=== PATIENT | male | born 1975 | race Caucasian/White ===

== ENCOUNTER 2016-09-12 20:15 | Emergency (ER) | payer SELFPAY ==
--- NOTE | 2016-09-12 21:15 | EDM.PDOC ---
ED HPI Trauma - General Chief Complaint: Upper Extremity Injury/Pain Stated Complaint: SHOULDER PAIN Time Seen by Provider: 09/12/16 20:23 Source: Reports: Patient History Limitations: Reports: No limitations - History of Present Illness INITIAL COMMENTS - FREE TEXT/NARRATIVE: HISTORY AND PHYSICAL: History of present illness: [40-year-old male] Review of systems: As per history of present illness and below otherwise all systems reviewed and negative. Past medical history: As per history of present illness and as reviewed below otherwise noncontributory. Surgical history: As per history of present illness and as reviewed below otherwise noncontributory. Social history: No reported history of drug or alcohol abuse. Family history: As per history of present illness and as reviewed below otherwise noncontributory. Physical exam: HEENT: Normocephalic, atraumatic, pupils normal and symmetrical, supple neck, no meningismus, normal color Lungs: Normal and symmetrical chest wall excursion bilateral with no tachypnea or increased work of breathing, grossly normal chest exam Heart: No tachycardia in triage Abdomen: Normal-appearing, nondistended, no visible mass or asymmetry Pelvis: Normal-appearing Genitourinary: Deferred Rectal exam: Deferred Extremities: Atraumatic, mild soft tissue tenderness right anterior shoulder in the distribution of biceps tendon. No skin changes no soft tissue swelling. No bony tenderness. Neurovascularly intact the right upper extremity and otherwise normal use and range of motion, no visible evidence of gross neurovascular compromise Neuro: Awake, alert, oriented. Normal and appropriate mental status. Cranial nerves grossly unremarkable. Motor function normal. Nonfocal neurologic exam. Diagnostics: [X-ray right shoulder interpreted by me unremarkable no acute bony abnormality. Report reviewed] Therapeutics: [] Impression: [] Plan: [Signs and symptoms consistent with suspected tendinitis with minimal reproducible pain in the biceps tendon distribution. Patient is well-appearing x -rays unremarkable no evidence of lytic lesion. No further workup or treatment indicated. Patient aware to range of motion his shoulder on a regular basis so as not to lose this ability. He will followup with PCP and orthopedics was given information for Dr. Chandni Arguello our orthopedic DrChristiana in is aware to apply ice as needed and return for new severe or worsening symptoms] Definitive disposition and diagnosis as appropriate pending reevaluation and review of above. Allergies/ADRs: Allergies No Known Allergies Allergy (Verified 09/12/16 20:30) Home Medications: Ambulatory Orders . [No Known Home Meds] 09/12/16 [Confirmed 09/12/16] Past Medical History Cardiovascular History: Reports: Hypertension Other Genitourinary History: on hemodialysis; fistula on left arm - Infectious Disease History Infectious Disease History: Reports: Chicken pox Social & Family History - Family History Family Medical History: Noncontributory - Tobacco Use Smoking Status *Q: Current Every Day Smoker Years of Tobacco use: 17 Packs/Tins Daily: 1 - Caffeine Use Caffeine Use: Reports: Coffee Caffeine Use Comment: 1cup/day - Recreational Drug Use Recreational Drug Use: No Review of Systems - Review of Systems Review Of Systems: See Below (History of present illness) Trauma Exam - Physical Exam Exam: See Below (History of present illness) Course - Vital Signs Last Recorded V/S: Last Vital Signs Temp 36.7 C 09/12/16 20:24 Pulse 89 09/12/16 21:48 Resp 16 09/12/16 21:48 BP 184/105 H 09/12/16 21:48 Pulse Ox 96 09/12/16 21:48 - Orders/Labs/Meds Orders: Active Orders 24 hr Category Date Time Status Shoulder Comp Rt [CR] Stat Exams 09/12/16 21:02 Taken Departure - Departure Time of Disposition: 21:22 Disposition: Home, Self-Care 01 Condition: good Clinical Impression: Right shoulder pain, Tendinitis Instructions: Tendinitis Referrals: PCP,None [Primary Care Provider] - Forms: ED Department Discharge Additional Instructions: Your symptoms are consistent with tendinitis of the right shoulder. This also possibly might have another cause for your pain but the x-ray shows no acute abnormality of your bones. Take Tylenol as needed for pain. He may find an ice pack helpful if it's sore at the end of the day. Be sure to use her arm without doing strenuous activities he did not lose range of motion in the shoulder. Followup with Dr. Chandni Fermin our orthopedic Dr. for reevaluation and further workup as needed. - My Orders Last 24 Hours: My Active Orders 09/12/16 21:02 Shoulder Comp Rt [CR] Stat - Assessment/Plan Last 24 Hours: My Active Orders 09/12/16 21:02 Shoulder Comp Rt [CR] Stat
[2016-09-12 21:56] VITALS: BP 184/105
--- NOTE | 2016-09-14 11:58 | CR ---
EXAM DATE: 09/12/16 PATIENT'S AGE: 40 Patient: [facility] MORALES Facility: [place], [place] Site . Site : 1975 Study: XRay Shoulder Right [id number] 9:16:35 PM Ordering Physician: Rivera Kumar Final Report: Right shoulder 3 VIEWS INDICATION: Pain. IMPRESSION: No visualized fracture. Alignments anatomic. AC joint spurring arthrosis. Dictated by Nabil Dorsey MD @ Sep 12 2016 9:19PM (Electronic Signature) Report Signed by Proxy. JIMMIE
== END 2016-09-12 21:54 | disposition home or self-care (01) ==
LOC: MW.ED 20:15
DX: M65.811 Other synovitis and tenosynovitis, right shoulder (principal); I10 Essential (primary) hypertension; F17.210 Nicotine dependence, cigarettes, uncomplicated
CPT/HCPCS: 73030-26-RT; 73030-RT; 99282; 99283

== ENCOUNTER 2016-10-02 09:47 | Emergency (ER) | payer SELFPAY ==
--- NOTE | 2016-10-02 09:52 | EDM.PDOC ---
ED HPI GENERAL MEDICAL PROBLEM - General Chief Complaint: Cardiovascular Problem Stated Complaint: CHEST Time Seen by Provider: 10/02/16 09:51 Source of Information: Reports: Patient - History of Present Illness INITIAL COMMENTS - FREE TEXT/NARRATIVE: HISTORY AND PHYSICAL: History of present illness: [] Patient with end-stage renal disease on dialysis presents from dialysis Patient initially presented with chest pain/epigastric pain nonradiating not associated with diaphoresis or shortness of breath he rates 10 out of 10 No fever nausea vomiting chills sweats Review of systems: As per history of present illness and below otherwise all systems reviewed and negative. Past medical history: As per history of present illness and as reviewed below otherwise noncontributory. Surgical history: As per history of present illness and as reviewed below otherwise noncontributory. Social history: No reported history of drug or alcohol abuse. Family history: As per history of present illness and as reviewed below otherwise noncontributory. Physical exam: HEENT: Atraumatic, normocephalic, pupils reactive, negative for conjunctival pallor or scleral icterus, mucous membranes moist, throat clear, neck supple, nontender, trachea midline. Lungs: Clear to auscultation, breath sounds equal bilaterally, chest nontender. Heart: S1S2, regular, negative for clicks, rubs, or JVD. Abdomen: Soft, nondistended, nontender. Negative for masses or hepatosplenomegaly. Negative for costovertebral tenderness. Pelvis: Stable nontender. Genitourinary: Deferred. Rectal: Deferred. Extremities: Atraumatic, negative for cords or calf pain. Neurovascular unremarkable. Neuro: Awake, alert, oriented. Cranial nerves II through XII unremarkable. Cerebellum unremarkable. Motor and sensory unremarkable throughout. Exam nonfocal. Diagnostics: [] Lab as below EKG Chest one view Therapeutics: [] Normal saline 150 cc per hour Cardizem 20 mg IV Aspirin 324 mg chewable Morphine 2 mg IV Lovenox 1 mg per kilogram subcutaneous zosyn 2.25 g iv Patient transferred by ALS unit to [facility] Dr. Rodriguez for inpatient dialysis and medical management Impression: [] Epigastric pain Pancreatitis Atrial fibrillation RVR hypotension episodic Definitive disposition and diagnosis as appropriate pending reevaluation and review of above. Chest Pain Score (Numeric/FACES): 10 - Related Data Allergies Allergy/AdvReac Type Severity Reaction Status Date / Time No Known Allergies Allergy Verified 10/02/16 09:55 Home Meds: Home Meds Calcium Carbonate [Tums] 1,500 mg PO TID 10/02/16 [History] Carvedilol [Coreg] 75 mg PO TID 10/02/16 [History] Losartan [Cozaar] 25 mg PO DAILY 10/02/16 [History] amLODIPine [Norvasc] 10 mg PO DAILY 10/02/16 [History] hydrALAZINE [Apresoline] 300 mg PO Q8H 10/02/16 [History] Past Medical History Cardiovascular History: Reports: Hypertension Other Genitourinary History: on hemodialysis; fistula on left arm - Infectious Disease History Infectious Disease History: Reports: Chicken Pox Social & Family History - Family History Family Medical History: Noncontributory - Tobacco Use Smoking Status *Q: Current Every Day Smoker Years of Tobacco use: 17 Packs/Tins Daily: 1 - Caffeine Use Caffeine Use: Reports: Coffee Caffeine Use Comment: 1cup/day - Recreational Drug Use Recreational Drug Use: No ED ROS GENERAL - Review of Systems Review Of Systems: ROS reveals no pertinent complaints other than HPI. ED EXAM, GENERAL - Physical Exam Exam: See Below Course - Vital Signs Last Recorded V/S: Last Vital Signs Temp 36.0 C 10/02/16 09:50 Pulse 139 H 10/02/16 11:01 Resp 15 10/02/16 11:01 BP 108/69 10/02/16 11:01 Pulse Ox 99 10/02/16 11:01 - Orders/Labs/Meds Orders: Active Orders 24 hr Category Date Time Status EKG Documentation Completion [RC] STAT Care 10/02/16 09:50 Active Chest 1V Frontal [CR] Stat Exams 10/02/16 09:50 Taken CULTURE BLOOD [BC] Stat Lab 10/02/16 10:49 Ordered CULTURE BLOOD [BC] Stat Lab 10/02/16 10:49 Ordered LACTATE DEHYDROGENASE,LDH [CHEM] Stat Lab 10/02/16 09:45 Received UA W/MICROSCOPIC [URIN] Stat Lab 10/02/16 09:50 Uncollected Piperacillin/Tazobactam [Zosyn] 2.25 gm Med 10/02/16 10:51 Active Sodium Chloride 0.9% [Normal Saline] 50 ml IV ONETIME Sodium Chloride 0.9% [Normal Saline] 1,000 ml Med 10/02/16 10:30 Active IV STAT Blood Culture x2 Reflex Set [OM.PC] Stat Oth 10/02/16 10:49 Ordered Medication Orders Sodium Chloride (Normal Saline) 1,000 mls @ 125 mls/hr IV STAT MADDI Last Admin: 10/02/16 10:19 Dose: 125 mls/hr Piperacillin Sod/Tazobactam (Sod 2.25 gm/ Sodium Chloride) 50 mls @ 100 mls/hr IV ONETIME ONE Stop: 10/02/16 11:20 Labs: Laboratory Tests 10/02/16 10/02/16 10/02/16 Range/Units 09:54 09:54 09:54 WBC 8.95 (4.0-11.0) K/uL RBC 3.55 L (4.50-5.90) M/uL Hgb 11.7 L (13.0-17.0) g/dL Hct 34.8 L (38.0-50.0) % MCV 98.0 (80.0-98.0) fL MCH 33.0 H (27.0-32.0) pg MCHC 33.6 (31.0-37.0) g/dL RDW Std Deviation 55.1 (28.0-62.0) fl RDW Coeff of Dave 15 (11.0-15.0) % Plt Count 159 (150-400) K/uL MPV 10.50 (7.40-12.00) fL Neut % (Auto) 53.9 (48.0-80.0) % Lymph % (Auto) 27.9 (16.0-40.0) % Baker % (Auto) 12.1 (0.0-15.0) % Eos % (Auto) 4.8 (0.0-7.0) % Baso % (Auto) 1.3 (0.0-1.5) % Neut # (Auto) 4.8 (1.4-5.7) K/uL Lymph # (Auto) 2.5 H (0.6-2.4) K/uL Baker # (Auto) 1.1 H (0.0-0.8) K/uL Eos # (Auto) 0.4 (0.0-0.7) K/uL Baso # (Auto) 0.1 (0.0-0.1) K/uL Nucleated RBC % 0.0 /100WBC Nucleated RBCs # 0 K/uL INR (0.86-1.11) Sodium 138 (136-146) mmol/L Potassium 3.5 (3.5-5.1) mmol/L Chloride 96 L (98-110) mmol/L Carbon Dioxide 24 (21-31) mmol/L BUN 44 H (6.0-23.0) mg/dL Creatinine 6.8 H (0.6-1.5) mg/dL Est Cr Clr Drug Dosing 16.48 mL/min Estimated GFR (MDRD) 9.1 ml/min Glucose 125 H (60-110) mg/dL Calcium 10.0 (8.8-10.8) mg/dL Total Bilirubin 0.6 (0.1-1.5) mg/dL AST 20 (5-40) IU/L ALT 29 (8-54) IU/L Alkaline Phosphatase 88 (40-150) Troponin I 0.24 (0.0-0.29) NG/ML Total Protein 7.3 (6.0-8.0) g/dL Albumin 4.3 (3.5-5.0) g/dL Globulin 3.0 (2.0-3.5) g/dL Albumin/Globulin Ratio 1.4 (1.3-2.8) Amylase 207 H (10-90) U/L Lipase 564 H (7-80) U/L 10/02/16 Range/Units 09:54 WBC (4.0-11.0) K/uL RBC (4.50-5.90) M/uL Hgb (13.0-17.0) g/dL Hct (38.0-50.0) % MCV (80.0-98.0) fL MCH (27.0-32.0) pg MCHC (31.0-37.0) g/dL RDW Std Deviation (28.0-62.0) fl RDW Coeff of Dave (11.0-15.0) % Plt Count (150-400) K/uL MPV (7.40-12.00) fL Neut % (Auto) (48.0-80.0) % Lymph % (Auto) (16.0-40.0) % Baker % (Auto) (0.0-15.0) % Eos % (Auto) (0.0-7.0) % Baso % (Auto) (0.0-1.5) % Neut # (Auto) (1.4-5.7) K/uL Lymph # (Auto) (0.6-2.4) K/uL Baker # (Auto) (0.0-0.8) K/uL Eos # (Auto) (0.0-0.7) K/uL Baso # (Auto) (0.0-0.1) K/uL Nucleated RBC % /100WBC Nucleated RBCs # K/uL INR 1.08 (0.86-1.11) Sodium (136-146) mmol/L Potassium (3.5-5.1) mmol/L Chloride (98-110) mmol/L Carbon Dioxide (21-31) mmol/L BUN (6.0-23.0) mg/dL Creatinine (0.6-1.5) mg/dL Est Cr Clr Drug Dosing mL/min Estimated GFR (MDRD) ml/min Glucose (60-110) mg/dL Calcium (8.8-10.8) mg/dL Total Bilirubin (0.1-1.5) mg/dL AST (5-40) IU/L ALT (8-54) IU/L Alkaline Phosphatase (40-150) Troponin I (0.0-0.29) NG/ML Total Protein (6.0-8.0) g/dL Albumin (3.5-5.0) g/dL Globulin (2.0-3.5) g/dL Albumin/Globulin Ratio (1.3-2.8) Amylase (10-90) U/L Lipase (7-80) U/L Meds: Medications Generic Name Dose Route Start Last Admin Trade Name Freq PRN Reason Stop Dose Admin Sodium Chloride 1,000 mls @ 125 mls/hr 10/02/16 10:30 10/02/16 10:19 Normal Saline IV 125 mls/hr STAT MADDI Administration Piperacillin Sod/Tazobactam 50 mls @ 100 mls/hr 10/02/16 10:51 Sod 2.25 gm/ Sodium Chloride IV 10/02/16 11:20 ONETIME ONE Discontinued Medications Generic Name Dose Route Start Last Admin Trade Name Freq PRN Reason Stop Dose Admin Aspirin 324 mg 10/02/16 09:54 10/02/16 09:58 Aspirin PO 10/02/16 09:55 324 mg ONETIME ONE Administration Diltiazem HCl 20 mg 10/02/16 10:04 10/02/16 10:11 Diltiazem IVPUSH 10/02/16 10:05 20 mg ONETIME ONE Administration Enoxaparin Sodium 100 mg 10/02/16 10:32 10/02/16 10:42 Lovenox SUBCUT 10/02/16 10:33 100 mg ONETIME ONE Administration Metoprolol Tartrate 5 mg 10/02/16 10:02 Lopressor IVPUSH 10/02/16 10:03 ONETIME ONE Morphine Sulfate 2 mg 10/02/16 10:30 10/02/16 10:39 Morphine IV 10/02/16 10:31 2 mg ONETIME ONE Administration Pantoprazole Sodium 80 mg 10/02/16 10:17 10/02/16 10:23 Protonix Iv IVPUSH 10/02/16 10:18 80 mg .BOLUS ONE Administration Departure - Departure Time of Disposition: 11:06 Disposition: DC/Tfer to Other 70 Reason for Transfer *Q: Other Condition: poor Clinical Impression: End stage renal disease, Atrial fibrillation with rapid ventricular response, Pancreatitis Forms: ED Department Discharge - My Orders Last 24 Hours: My Active Orders 10/02/16 09:45 LACTATE DEHYDROGENASE,LDH [CHEM] Stat 10/02/16 09:50 EKG Documentation Completion [RC] STAT Chest 1V Frontal [CR] Stat UA W/MICROSCOPIC [URIN] Stat 10/02/16 10:30 Sodium Chloride 0.9% [Normal Saline] 1,000 ml IV STAT 10/02/16 10:49 CULTURE BLOOD [BC] Stat CULTURE BLOOD [BC] Stat Blood Culture x2 Reflex Set [OM.PC] Stat 10/02/16 10:51 Piperacillin/Tazobactam [Zosyn] 2.25 gm Sodium Chloride 0.9% [Normal Saline] 50 ml IV ONETIME - Assessment/Plan Last 24 Hours: My Active Orders 10/02/16 09:45 LACTATE DEHYDROGENASE,LDH [CHEM] Stat 10/02/16 09:50 EKG Documentation Completion [RC] STAT Chest 1V Frontal [CR] Stat UA W/MICROSCOPIC [URIN] Stat 10/02/16 10:30 Sodium Chloride 0.9% [Normal Saline] 1,000 ml IV STAT 10/02/16 10:49 CULTURE BLOOD [BC] Stat CULTURE BLOOD [BC] Stat Blood Culture x2 Reflex Set [OM.PC] Stat 10/02/16 10:51 Piperacillin/Tazobactam [Zosyn] 2.25 gm Sodium Chloride 0.9% [Normal Saline] 50 ml IV ONETIME
[2016-10-02] MEDS ORDERED: Aspirin 81 MG Tab.Chew PO ONE (09:54)
[2016-10-02] MEDS ORDERED: Metoprolol Tartrate 5 MG/5 ML SDV IVPUSH ONE (10:02)
[2016-10-02] MEDS ORDERED: Diltiazem 25 MG/5 ML SDV IVPUSH ONE ×2 (10:04→11:30)
[2016-10-02] MEDS ORDERED: Pantoprazole 40 MG Vial IVPUSH ONE (10:17)
[2016-10-02] MEDS ORDERED: Sodium Chloride 0.9% 1,000 ML IV SCH (10:30)
[2016-10-02] MEDS ORDERED: Morphine 10 MG/ML Syringe IV ONE (10:30)
[2016-10-02] MEDS ORDERED: Enoxaparin 100 MG/1 ML Syringe SUBCUT ONE (10:32)
[2016-10-02] MEDS ORDERED: Piperacillin/Tazobactam 2.25 GM in Sodium Chloride 0.9% 50 ML IV ONE (10:51)
[2016-10-02 12:00] VITALS: BP 110/71
--- NOTE | 2016-10-05 11:05 | CR ---
EXAM DATE: 10/02/16 PATIENT'S AGE: 41 Patient: DUC MORALES Facility: [place], [place] Site . Site : 1975 Study: XRay Chest [id number]/27/2017 10:05:50 AM Ordering Physician: Doctor Clement Final Report: INDICATION: Chest pain. TECHNIQUE: AP portable chest. FINDINGS: Focal eventration of the left hemidiaphragm. No definite infiltrate. Overall heart size and pulmonary vascularity are within normal limits. The included skeletal thorax is unremarkable. IMPRESSION: No acute cardiopulmonary process identified. Dictated by Arnol Mcknight MD @ 10/02/2016 10:11:07 AM Dictated by: Arnol Mcknight MD @ 10/02/2016 10:11:11 (Electronic Signature) Report Signed by Proxy. [facility] HEALTHKiersten
== END 2016-10-02 11:55 | disposition other institution (70) ==
LOC: MW.ED 09:47
DX: I48.91 Unspecified atrial fibrillation (principal); N18.6 End stage renal disease; K85.90 Acute pancreatitis without necrosis or infection, unspecified; I10 Essential (primary) hypertension; F17.210 Nicotine dependence, cigarettes, uncomplicated; Z79.899 Other long term (current) drug therapy
CPT/HCPCS: 36415; 71010; 80053; 82150; 83615; 83690; 84484; 85025; 85610; 87040; 93005; 96361; 96365; 96372; 96375; 99285; A9270; C9113; J1650; J2270; J2543; J7040; J7050; 87077; J3490

== ENCOUNTER 2016-11-18 15:18 | Observation (INO) | payer SELFPAY ==
[2016-11-18] MEDS ORDERED: Albuterol/Ipratropium 3.0-0.5 MG/3 ML Neb Soln NEB ONE ×3 (15:33→16:10)
[2016-11-18] MEDS ORDERED: Sodium Chloride 0.9% 10 ML Syringe FLUSH PRN (15:35)
[2016-11-18] MEDS ORDERED: Sodium Chloride 0.9% 2.5 ML Syringe FLUSH PRN (15:35)
[2016-11-18] MEDS ORDERED: Aspirin 81 MG Tab.Chew PO ONE (15:36)
[2016-11-18] MEDS ORDERED: Pantoprazole 40 MG Vial IVPUSH ONE (15:37)
[2016-11-18] MEDS ORDERED: Ondansetron 4 MG/2 ML SDV IVPUSH ONE ×2 (15:37→16:44)
--- NOTE | 2016-11-18 15:43 | EDM.PDOC ---
ED HPI GENERAL MEDICAL PROBLEM - General Chief Complaint: Chest Pain Stated Complaint: CHEST PAIN Time Seen by Provider: 11/18/16 15:27 - History of Present Illness INITIAL COMMENTS - FREE TEXT/NARRATIVE: HISTORY AND PHYSICAL: History of present illness: The patient is a 41-year-old male with a history of hypertension and end-stage renal disease who is on hemodialysis and presents with complaints of left posterior neck pain that then progressed to his left arm and then his left chest wall area. The patient states he had a normal dialysis today and finished at about 12 noon and felt fine when he was discharged and as the afternoon progressed he started having pain at his left posterior neck and he placed a Icy hot on it. He says that the pain felt deep and aching in character and then migrated to his left arm and into his upper anterior chest wall on the left. He says that the pain progressed and is more concerned about his left chest wall pain. He also complains of some epigastric discomfort and has had some nausea and one small episode of vomiting earlier this afternoon. He does feel short of breath and says he does smoke half a pack a day. He has used nebulizers in the past but does not use them regularly and has no pulmonary diagnosis. He has no leg edema and has a fistula on his left upper arm. The patient was last seen here the end of September, October 02, after presenting from dialysis with epigastric and chest pain with A. fib. Hip pancreatitis at that time and was transferred out. According to the patient he was evaluated there and did not see a salesperson [employer] at that time. Please note that the patient states that he has been having a lot of pain from tendinitis and he's been taking a lot of Motrin products for the last one month. Please note the patient normally dialyzes on Tuesday and Saturdays and did dialyze today. Review of systems: As per history of present illness and below otherwise all systems reviewed and negative. Past medical history: As per history of present illness and as reviewed below otherwise noncontributory. Surgical history: As per history of present illness and as reviewed below otherwise noncontributory. Social history: No reported history of drug or alcohol abuse. Family history: As per history of present illness and as reviewed below otherwise noncontributory. Physical exam: Gen.: Well-developed well-nourished male who is nontoxic and speaking clearly in the ED and vital signs were noted by me. HEENT: Atraumatic, normocephalic, pupils reactive, negative for conjunctival pallor or scleral icterus, mucous membranes moist, throat clear, neck supple, nontender, trachea midline. Lungs: Tory wheezing is noted bilaterally but there is no work of breathing or sensory muscle use,, breath sounds equal bilaterally, chest nontender. Heart: S1S2, regular, negative for clicks, rubs, or JVD. Abdomen: Soft, nondistended, mild tenderness in the epigastrium and slightly to the left without rebound or guarding Negative for masses or hepatosplenomegaly. Negative for costovertebral tenderness. Pelvis: Stable nontender. Genitourinary: Deferred. Rectal: Deferred. Extremities: Atraumatic, negative for cords or calf pain. Neurovascular unremarkable. No pedal edema. There is a fistula appreciated in the left upper extremity with a positive thrill Neuro: Awake, alert, oriented. Cranial nerves II through XII unremarkable. Cerebellum unremarkable. Motor and sensory unremarkable throughout. Exam nonfocal. Diagnostics: EKG, EKG is compared to one performed October 02, CBC CMP amylase lipase INR troponin chest x-ray Therapeutics: IV O2 monitor sublingual nitroglycerin aspirin protonic Zofran DuoNeb GI cocktail morphine Per respiratory therapy the patient has no more wheezing after a DuoNeb was performed. 1610: On my reevaluation the patient has received 2 sublingual nitros and has had issues maintaining a blood pressure greater than 100 systolic as he is currently at his dry weight. He says the discomfort has gone from an 8 to a 6/ 10. When I re-listened to his lung sounds he is still having expiratory wheezing more on the right side. We will repeat a DuoNeb and an EKG. I discussed with the patient that if I cannot get him pain-free I will need to transfer him. I have currently discussed the case with our salesperson [employer] glass[employer] Dr. Burch who is here at 16:15 reviewed in the EKG and will be seeing the patient. After the third nitroglycerin the patient states his chest discomfort is 3/10. He describes it more as a burning-like sensation but on my personal evaluation he keeps putting his hand on his epigastrium. Patient also tells me that he has some dizziness associated with his symptomatology and prefers to keep his eyes closed and sit upright. On reevaluation he has slight nystagmus with a fast component to the right and I can elicit the symptoms by having him move his eyes side to side. He does state to me that the dizziness started after the other presenting complaints as described above. I've also written for a GI cocktail as the patient has more GI description of his discomfort. 1640: Dr Burch is currently evaluating the patient. I've given the patient a dose of morphine as he says he is having discomfort in his posterior neck and morphine usually helps with that discomfort. 1715: Dr. Burch feels that the patient can stay here for observation and if anything changes he can then be transferred. The patient will prefer to stay here rather than be transferred and physical he states he does not want to go back to [place] if he does need to be transferred. The case was also discussed at this time with our hospitalist --- but he was aware of this case at 1545 at the onset of my workup--- and he is agreeable to observation admission as well. I did discuss with the patient that if anything changed and transfer was indicated that would be initiated and completed. The patient currently feels almost pain-free and is way more relaxed laying back in the bed no hyperventilation distress breathing or answer on his stomach. Dr. Burch specifically told me that he does not need Nitropaste. Critical care time excluding procedures: 31min Impression: Chest pain/epigastric pain and musculoskeletal neck pain rule out ACS, history of end-stage renal disease and hypertension on dialysis Definitive disposition and diagnosis as appropriate pending reevaluation and review of above. chest pain Pain Score (Numeric/FACES): 8 - Related Data Allergies Allergy/AdvReac Type Severity Reaction Status Date / Time No Known Allergies Allergy Verified 11/18/16 15:27 Home Meds: Home Meds Calcium Carbonate [Tums] 1,500 mg PO TID 10/02/16 [History] Carvedilol [Coreg] 75 mg PO TID 10/02/16 [History] Losartan [Cozaar] 25 mg PO DAILY 10/02/16 [History] amLODIPine [Norvasc] 10 mg PO DAILY 10/02/16 [History] hydrALAZINE [Apresoline] 300 mg PO Q8H 10/02/16 [History] Past Medical History HEENT History: Reports: None Cardiovascular History: Reports: Hypertension Respiratory History: Reports: None Gastrointestinal History: Reports: None Genitourinary History: Reports: Dialysis Other Genitourinary History: on hemodialysis; fistula on left arm Musculoskeletal History: Reports: None Neurological History: Reports: None Psychiatric History: Reports: None Endocrine/Metabolic History: Reports: None Hematologic History: Reports: None Immunologic History: Reports: None Oncologic (Cancer) History: Reports: None Dermatologic History: Reports: None - Infectious Disease History Infectious Disease History: Reports: Chicken Pox - Past Surgical History Head Surgeries/Procedures: Reports: None GI Surgical History: Reports: Appendectomy Social & Family History - Family History Family Medical History: Noncontributory - Tobacco Use Smoking Status *Q: Current Every Day Smoker Years of Tobacco use: 23 Packs/Tins Daily: 0.5 - Caffeine Use Caffeine Use: Reports: Coffee Caffeine Use Comment: 1cup/day - Recreational Drug Use Recreational Drug Use: No ED ROS GENERAL - Review of Systems Review Of Systems: ROS reveals no pertinent complaints other than HPI. ED EXAM, GENERAL - Physical Exam Exam: See Below (See dictation) Course - Vital Signs Last Recorded V/S: Last Vital Signs Temp 36.6 C 11/18/16 15:27 Pulse 99 11/18/16 15:27 Resp 18 11/18/16 15:27 BP 105/54 L 11/18/16 16:12 Pulse Ox 98 11/18/16 15:27 - Orders/Labs/Meds Orders: Active Orders 24 hr Category Date Time Status Patient Status [ADT] Stat ADT 11/18/16 17:16 Ordered Cardiac Monitoring [RC] . DIRECTED Care 11/18/16 15:35 Active EKG Documentation Completion [RC] STAT Care 11/18/16 15:36 Active EKG Documentation Completion [RC] STAT Care 11/18/16 16:10 Active Notify Provider Consults [RC] ASDIRECTED Care 11/18/16 16:20 Active Oxygen Therapy, ED [RC] ASDIRECTED Care 11/18/16 15:35 Active RT Aerosol Therapy [RC] ASDIRECTED Care 11/18/16 15:34 Active RT Aerosol Therapy [RC] ASDIRECTED Care 11/18/16 16:08 Active RT Aerosol Therapy [RC] ASDIRECTED Care 11/18/16 16:10 Active Consult to Physician [CONS] Stat Cons 11/18/16 16:20 Active Sodium Chloride 0.9% [Normal Saline] 1,000 ml Med 11/18/16 15:59 Active IV .Bolus Sodium Chloride 0.9% [Saline Flush] Med 11/18/16 15:35 Active 10 ml FLUSH ASDIRECTED PRN Sodium Chloride 0.9% [Saline Flush] Med 11/18/16 15:35 Active 2.5 ml FLUSH ASDIRECTED PRN Saline Lock Insert [OM.PC] Stat Oth 11/18/16 15:35 Ordered Medication Orders Sodium Chloride (Normal Saline) 1,000 mls @ 200 mls/hr IV .Bolus ONE Stop: 11/18/16 20:58 Last Admin: 11/18/16 16:04 Dose: Not Given Sodium Chloride (Saline Flush) 10 ml FLUSH ASDIRECTED PRN PRN Reason: Keep Vein Open Last Admin: 11/18/16 16:42 Dose: 10 ml Sodium Chloride (Saline Flush) 2.5 ml FLUSH ASDIRECTED PRN PRN Reason: Keep Vein Open Last Admin: 11/18/16 16:42 Dose: 2.5 ml Labs: Laboratory Tests 11/18/16 11/18/16 11/18/16 Range/Units 15:38 15:38 15:38 WBC 8.90 (4.0-11.0) K/uL RBC 3.38 L (4.50-5.90) M/uL Hgb 11.8 L (13.0-17.0) g/dL Hct 34.4 L (38.0-50.0) % MCV 101.8 H (80.0-98.0) fL MCH 34.9 H (27.0-32.0) pg MCHC 34.3 (31.0-37.0) g/dL RDW Std Deviation 55.3 (28.0-62.0) fl RDW Coeff of Dave 15 (11.0-15.0) % Plt Count 172 (150-400) K/uL MPV 10.60 (7.40-12.00) fL Neut % (Auto) 70.1 (48.0-80.0) % Lymph % (Auto) 13.4 L (16.0-40.0) % [place] % (Auto) 10.7 (0.0-15.0) % Eos % (Auto) 4.2 (0.0-7.0) % Baso % (Auto) 1.6 H (0.0-1.5) % Neut # (Auto) 6.3 H (1.4-5.7) K/uL Lymph # (Auto) 1.2 (0.6-2.4) K/uL [place] # (Auto) 1.0 H (0.0-0.8) K/uL Eos # (Auto) 0.4 (0.0-0.7) K/uL Baso # (Auto) 0.1 (0.0-0.1) K/uL Nucleated RBC % 0.0 /100WBC Nucleated RBCs # 0 K/uL INR 1.09 (0.86-1.11) Sodium 136 (136-146) mmol/L Potassium 4.1 (3.5-5.1) mmol/L Chloride 95 L (98-110) mmol/L Carbon Dioxide 27 (21-31) mmol/L BUN 29 H (6.0-23.0) mg/dL Creatinine 6.5 H (0.6-1.5) mg/dL Est Cr Clr Drug Dosing 17.74 mL/min Estimated GFR (MDRD) 9.6 ml/min Glucose 165 H (60-110) mg/dL Calcium 10.6 (8.8-10.8) mg/dL Total Bilirubin 0.6 (0.1-1.5) mg/dL AST 25 (5-40) IU/L ALT 20 (8-54) IU/L Alkaline Phosphatase 81 (40-150) Troponin I (0.0-0.29) NG/ML Total Protein 7.8 (6.0-8.0) g/dL Albumin 4.3 (3.5-5.0) g/dL Globulin 3.5 (2.0-3.5) g/dL Albumin/Globulin Ratio 1.2 L (1.3-2.8) Amylase 233 H (10-90) U/L Lipase 289 H (7-80) U/L 11/18/16 Range/Units 15:38 WBC (4.0-11.0) K/uL RBC (4.50-5.90) M/uL Hgb (13.0-17.0) g/dL Hct (38.0-50.0) % MCV (80.0-98.0) fL MCH (27.0-32.0) pg MCHC (31.0-37.0) g/dL RDW Std Deviation (28.0-62.0) fl RDW Coeff of Dave (11.0-15.0) % Plt Count (150-400) K/uL MPV (7.40-12.00) fL Neut % (Auto) (48.0-80.0) % Lymph % (Auto) (16.0-40.0) % [place] % (Auto) (0.0-15.0) % Eos % (Auto) (0.0-7.0) % Baso % (Auto) (0.0-1.5) % Neut # (Auto) (1.4-5.7) K/uL Lymph # (Auto) (0.6-2.4) K/uL [place] # (Auto) (0.0-0.8) K/uL Eos # (Auto) (0.0-0.7) K/uL Baso # (Auto) (0.0-0.1) K/uL Nucleated RBC % /100WBC Nucleated RBCs # K/uL INR (0.86-1.11) Sodium (136-146) mmol/L Potassium (3.5-5.1) mmol/L Chloride (98-110) mmol/L Carbon Dioxide (21-31) mmol/L BUN (6.0-23.0) mg/dL Creatinine (0.6-1.5) mg/dL Est Cr Clr Drug Dosing mL/min Estimated GFR (MDRD) ml/min Glucose (60-110) mg/dL Calcium (8.8-10.8) mg/dL Total Bilirubin (0.1-1.5) mg/dL AST (5-40) IU/L ALT (8-54) IU/L Alkaline Phosphatase (40-150) Troponin I 0.25 (0.0-0.29) NG/ML Total Protein (6.0-8.0) g/dL Albumin (3.5-5.0) g/dL Globulin (2.0-3.5) g/dL Albumin/Globulin Ratio (1.3-2.8) Amylase (10-90) U/L Lipase (7-80) U/L Meds: Medications Generic Name Dose Route Start Last Admin Trade Name Freq PRN Reason Stop Dose Admin Sodium Chloride 1,000 mls @ 200 mls/hr 11/18/16 15:59 11/18/16 16:04 Normal Saline IV 11/18/16 20:58 Not Given .Bolus ONE Sodium Chloride 10 ml 11/18/16 15:35 11/18/16 16:42 Saline Flush FLUSH 10 ml ASDIRECTED PRN Administration Keep Vein Open Sodium Chloride 2.5 ml 11/18/16 15:35 11/18/16 16:42 Saline Flush FLUSH 2.5 ml ASDIRECTED PRN Administration Keep Vein Open Discontinued Medications Generic Name Dose Route Start Last Admin Trade Name Ulicesq PRN Reason Stop Dose Admin Albuterol/Ipratropium 3 ml 11/18/16 15:33 11/18/16 15:39 Duoneb 3.0-0.5 Mg/3 Ml NEB 11/18/16 15:34 3 ml ONETIME ONE Administration Albuterol/Ipratropium 3 ml 11/18/16 16:08 11/18/16 16:22 Duoneb 3.0-0.5 Mg/3 Ml NEB 11/18/16 16:09 3 ml ONETIME ONE Administration Albuterol/Ipratropium 3 ml 11/18/16 16:10 11/18/16 16:34 Duoneb 3.0-0.5 Mg/3 Ml NEB 11/18/16 16:11 Not Given ONETIME ONE Aspirin 324 mg 11/18/16 15:36 11/18/16 15:48 Aspirin PO 11/18/16 15:37 324 mg ONETIME ONE Administration Al Hydroxide/Mg Hydroxide 15 0 ml 11/18/16 16:20 11/18/16 16:28 ml/ Metoclopramide HCl 5 mg/ PO 11/18/16 16:21 1 each Lidocaine HCl 5 ml ONETIME ONE Administration Sodium Chloride 1,000 mls @ 999 mls/hr 11/18/16 16:02 11/18/16 16:20 Normal Saline IV 11/18/16 17:02 125 mls/hr .Bolus ONE Infusion Morphine Sulfate 4 mg 11/18/16 16:31 11/18/16 16:37 Morphine IVPUSH 11/18/16 16:32 4 mg ONETIME ONE Administration Nitroglycerin 0.4 mg 11/18/16 15:45 11/18/16 16:12 Nitrostat SL 11/18/16 15:56 0.4 mg Q5M MADDI Administration Ondansetron HCl 4 mg 11/18/16 15:37 11/18/16 15:52 Zofran IVPUSH 11/18/16 15:38 4 mg ONETIME ONE Administration Ondansetron HCl 4 mg 11/18/16 16:44 11/18/16 16:48 Zofran IVPUSH 11/18/16 16:45 4 mg ONETIME ONE Administration Pantoprazole Sodium 80 mg 11/18/16 15:37 11/18/16 16:07 Protonix Iv IVPUSH 11/18/16 15:38 80 mg .BOLUS ONE Administration Departure - Departure Time of Disposition: 17:20 Disposition: Refer to Observation Condition: Good Clinical Impression: Acute coronary syndrome - Discharge Information Forms: ED Department Discharge - My Orders Last 24 Hours: My Active Orders 11/18/16 15:34 RT Aerosol Therapy [RC] ASDIRECTED 11/18/16 15:35 Cardiac Monitoring [RC] . DIRECTED Oxygen Therapy, ED [RC] ASDIRECTED Sodium Chloride 0.9% [Saline Flush] 10 ml FLUSH ASDIRECTED PRN Sodium Chloride 0.9% [Saline Flush] 2.5 ml FLUSH ASDIRECTED PRN Saline Lock Insert [OM.PC] Stat 11/18/16 15:36 EKG Documentation Completion [RC] STAT 11/18/16 15:59 Sodium Chloride 0.9% [Normal Saline] 1,000 ml IV .Bolus 11/18/16 16:08 RT Aerosol Therapy [RC] ASDIRECTED 11/18/16 16:10 EKG Documentation Completion [RC] STAT RT Aerosol Therapy [RC] ASDIRECTED 11/18/16 16:20 Notify Provider Consults [RC] ASDIRECTED Consult to Physician [CONS] Stat 11/18/16 17:16 Patient Status [ADT] Stat - Assessment/Plan Last 24 Hours: My Active Orders 11/18/16 15:34 RT Aerosol Therapy [RC] ASDIRECTED 11/18/16 15:35 Cardiac Monitoring [RC] . DIRECTED Oxygen Therapy, ED [RC] ASDIRECTED Sodium Chloride 0.9% [Saline Flush] 10 ml FLUSH ASDIRECTED PRN Sodium Chloride 0.9% [Saline Flush] 2.5 ml FLUSH ASDIRECTED PRN Saline Lock Insert [OM.PC] Stat 11/18/16 15:36 EKG Documentation Completion [RC] STAT 11/18/16 15:59 Sodium Chloride 0.9% [Normal Saline] 1,000 ml IV .Bolus 11/18/16 16:08 RT Aerosol Therapy [RC] ASDIRECTED 11/18/16 16:10 EKG Documentation Completion [RC] STAT RT Aerosol Therapy [RC] ASDIRECTED 11/18/16 16:20 Notify Provider Consults [RC] ASDIRECTED Consult to Physician [CONS] Stat 11/18/16 17:16 Patient Status [ADT] Stat
[2016-11-18] MEDS: Nitroglycerin 0.4 MG Tab.SL SL SCH ×3 (15:49→16:12)
[2016-11-18] MEDS ORDERED: Sodium Chloride 0.9% 1,000 ML IV ONE ×2 (15:59→16:02)
[2016-11-18] MEDS ORDERED: Alum Hydrox/Mag Hydrox/Simeth 15 ML, Metoclopramide 5 MG, Lidocaine 2% 5 ML PO ONE ×3 (16:20)
[2016-11-18] MEDS ORDERED: Morphine 2 MG/ML Syringe IVPUSH ONE (16:31)
--- NOTE | 2016-11-18 16:42 | CR ---
EXAMINATION: Portable chest radiograph. HISTORY: Shortness of breath. COMPARISON: 10/02/2016. FINDINGS: The trachea is midline. The cardiomediastinal silhouette is within normal limits. Mild left basilar atelectasis and/or infiltrate, grossly unchanged from the prior examination. Osseous structures appear unremarkable. IMPRESSION: Mild left basilar atelectasis and/or infiltrate, grossly unchanged from the prior examination.
--- NOTE | 2016-11-18 19:01 | PCM.HP ---
H&P History of Present Illness - General Date of Service: 11/18/16 Admit Problem/Dx: Admission Diagnosis/Problem Admission Diagnosis/Problem Acute coronary syndrome Source of Information: Patient, Old Records, Provider - History of Present Illness Initial Comments - Free Text/Narative: He was seen in the ED today because of a burning sensation in the substernal area associated with upper abdominal pain. no vomiting he has a good appetite. He was seen in the ED by Dr Mcleod , cardiology who agreed with observation in our facility. He has end stage renal disease and had dialysis today. chest pain Pain Score (Numeric/FACES): 8 - Related Data Allergies/Adverse Reactions: Allergies Allergy/AdvReac Type Severity Reaction Status Date / Time No Known Allergies Allergy Verified 11/18/16 15:27 Home Medications: Home Meds Calcium Carbonate [Tums] 1,500 mg PO TID 10/02/16 [History] Carvedilol [Coreg] 75 mg PO TID 10/02/16 [History] Losartan [Cozaar] 25 mg PO DAILY 10/02/16 [History] amLODIPine [Norvasc] 10 mg PO DAILY 10/02/16 [History] hydrALAZINE [Apresoline] 300 mg PO Q8H 10/02/16 [History] Past Medical History HEENT History: Reports: None Cardiovascular History: Reports: Hypertension Respiratory History: Reports: None. Denies: COPD Gastrointestinal History: Reports: None. Denies: Cirrhosis Genitourinary History: Reports: Chronic Renal Insuffiency, Dialysis Other Genitourinary History: on hemodialysis; fistula on left arm Musculoskeletal History: Reports: None Neurological History: Reports: None Psychiatric History: Reports: None Endocrine/Metabolic History: Reports: None. Denies: Diabetes, Type II Hematologic History: Reports: None Immunologic History: Reports: None Oncologic (Cancer) History: Reports: None Dermatologic History: Reports: None - Infectious Disease History Infectious Disease History: Reports: Chicken Pox - Past Surgical History Head Surgeries/Procedures: Reports: None GI Surgical History: Reports: Appendectomy Social & Family History - Family History Family Medical History: Noncontributory - Tobacco Use Smoking Status *Q: Current Every Day Smoker Years of Tobacco use: 23 Packs/Tins Daily: 0.5 - Caffeine Use Caffeine Use: Reports: Coffee Caffeine Use Comment: 1cup/day - Alcohol Use Alcohol Use Comment: he reports that he drinks alcohol small amount; not everyday - Recreational Drug Use Recreational Drug Use: No H&P Review of Systems - Review of Systems: Review Of Systems: See Below General: Denies: Fever, Chills Pulmonary: Denies: Shortness of Breath, Cough, Sputum Cardiovascular: Reports: Chest Pain Gastrointestinal: Reports: Abdominal Pain. Denies: Anorexia, Black Stool, Bloody Stool, Decreased Appetite, Hematemesis, Hematochezia Genitourinary: Reports: Other (he has almost complete anuria) Psychiatric: Denies: Agitation Exam - Exam Exam: See Below - Vital Signs Vital Signs: Last Vital Signs Temp 97.4 F 11/18/16 17:59 Pulse 96 11/18/16 17:26 Resp 18 11/18/16 17:59 BP 138/69 11/18/16 17:59 Pulse Ox 94 L 11/18/16 17:59 Weight: 100.8 kg - Exam General: Alert, Oriented, Cooperative HEENT: EOMI, Mucosa Moist & [place] Neck: Supple, Trachea Midline Lungs: Clear to Auscultation, Normal Respiratory Effort Cardiovascular: Regular Rate, Regular Rhythm, Systolic Murmur (3/6 holosystolic m heard over entire precordium) Abdomen: Soft, Tenderness (moderate diffuse upper abdominal tenderness) (Male) Exam: Deferred Rectal (Males) Exam: Deferred Extremities: No: Edema Neurological: Cranial Nerves Intact, Normal Speech Neuro Extensive - Motor, Sensory, Reflexes: No: Dysarthria, Facial Palsy (R), Hemeplagia (R), Hemeplagia (L) - Patient Data Result Diagrams: 11/18/16 15:38 11/18/16 15:38 *Q Meaningful Use (ADM) - VTE *Q VTE Criteria *Q: - Stroke *Q Stroke Criteria *Q: - AMI *Q AMI Criteria *Q: - Problem List (1) Chest pain SNOMED Code(s): 61612278 ICD Code: R07.9 - CHEST PAIN, UNSPECIFIED Status: Acute Current Visit: Yes (2) End stage renal disease SNOMED Code(s): 70683119 ICD Code: N18.6 - END STAGE RENAL DISEASE Status: Acute Current Visit: No (3) Pancreatitis SNOMED Code(s): 45091932 ICD Code: K85.90 - ACUTE PANCREATITIS WITHOUT NECROSIS OR INFECTION, UNSP Status: Acute Current Visit: No Problem List Initiated/Reviewed/Updated: Yes Orders Last 24hrs: Medication Orders Sodium Chloride (Normal Saline) 1,000 mls @ 200 mls/hr IV .Bolus ONE Stop: 11/18/16 20:58 Last Admin: 11/18/16 16:04 Dose: Not Given Sodium Chloride (Saline Flush) 10 ml FLUSH ASDIRECTED PRN PRN Reason: Keep Vein Open Last Admin: 11/18/16 16:42 Dose: 10 ml Sodium Chloride (Saline Flush) 2.5 ml FLUSH ASDIRECTED PRN PRN Reason: Keep Vein Open Last Admin: 11/18/16 16:42 Dose: 2.5 ml Assessment/Plan Comment:: ct abdomen and pelvis without contrast serial troponins. See orders Paulino Espinal MD
[2016-11-18] MEDS ORDERED: Temazepam 15 MG Cap PO PRN (19:03)
[2016-11-18] MEDS ORDERED: HYDRALAZINE PO SCH (19:15)
[2016-11-18] MEDS: Calcium Carbonate 500 MG Tab.Chew PO SCH (21:47)
[2016-11-18] MEDS: Sucralfate Suspension 1 GM/10 ML Cup PO SCH (21:47)
[2016-11-18] MEDS: Morphine 4 MG/ML Syringe IVPUSH PRN (21:47)
[2016-11-18] MEDS ORDERED: Carvedilol 25 MG Tab PO SCH (22:00)
[2016-11-18] MEDS ORDERED: amLODIPine 5 MG Tab PO SCH (22:15)
[2016-11-19] MEDS: Sucralfate Suspension 1 GM/10 ML Cup PO SCH ×2 (03:32→08:10)
[2016-11-19] MEDS ORDERED: Nitroglycerin 2% Oint 1 GM UD Packet TOP SCH (05:45)
[2016-11-19] MEDS: Calcium Carbonate 500 MG Tab.Chew PO SCH (06:08)
[2016-11-19] MEDS: Morphine 4 MG/ML Syringe IVPUSH PRN (07:24)
[2016-11-19] MEDS ORDERED: Ondansetron 4 MG/2 ML SDV IVPUSH PRN (07:35)
[2016-11-19] MEDS ORDERED: Aspirin 81 MG Tab.Chew PO ONE (07:49)
--- NOTE | 2016-11-19 07:58 | PCM.DCSUM1 ---
Discharge Summary - Hospital Course Brief History: He was admitted with atypical chest pain. - Discharge Data Discharge Date: 11/19/16 Discharge Disposition: Home, Self-Care 01 Condition: Fair - Discharge Diagnosis/Problem(s) (1) Chest pain SNOMED Code(s): 20264268 ICD Code: R07.9 - CHEST PAIN, UNSPECIFIED Status: Acute Current Visit: Yes (2) End stage renal disease SNOMED Code(s): 05121849 ICD Code: N18.6 - END STAGE RENAL DISEASE Status: Acute Current Visit: No (3) Pancreatitis SNOMED Code(s): 50715027 ICD Code: K85.90 - ACUTE PANCREATITIS WITHOUT NECROSIS OR INFECTION, UNSP Status: Acute Current Visit: No - Patient Summary/Data Hospital Course: He is known to have end stage renal disease. He had dialysis earlier on the day of admission. His initial troponin was 0.25. Follow up troponins were 0.33 and 0.44 respectively. At the time of transfer his chest pain is controlled with nitroglycerin transcutaneous. EKG showed sinus rhythm with LVH and with ST elevation c/w early repolarization. His EKG did not show observable change during his time in the hospital. I spoke with Dr Suárez, [facility], who accepts the patient in transfer for a higher level of care including the availability of invasive cardiology. Paulino Espinal MD - Discharge Plan Home Medications: Home Meds Calcium Carbonate [Tums] 1,500 mg PO TID 10/02/16 [History] Carvedilol [Coreg] 75 mg PO TID 10/02/16 [History] Losartan [Cozaar] 25 mg PO DAILY 10/02/16 [History] amLODIPine [Norvasc] 10 mg PO DAILY 10/02/16 [History] hydrALAZINE [Apresoline] 300 mg PO Q8H 10/02/16 [History] Forms: ED Department Discharge Referrals: PCP,None [Primary Care Provider] - - Patient Data Vitals - Most Recent: Last Vital Signs Temp 97 F 11/19/16 04:00 Pulse 84 11/19/16 04:00 Resp 20 11/19/16 04:00 BP 140/77 11/19/16 04:00 Pulse Ox 94 L 11/19/16 04:00 Weight - Most Recent: 100.8 kg Lab Results - Last 24 hrs: Laboratory Results - last 24 hr 11/18/16 11/19/16 11/19/16 Range/Units 22:58 04:57 04:57 WBC 7.36 (4.0-11.0) K/uL RBC 3.05 L (4.50-5.90) M/uL Hgb 10.6 L (13.0-17.0) g/dL Hct 32.1 L (38.0-50.0) % MCV 105.2 H (80.0-98.0) fL MCH 34.8 H (27.0-32.0) pg MCHC 33.0 (31.0-37.0) g/dL RDW Std Deviation 59.5 (28.0-62.0) fl RDW Coeff of Dave 16 H (11.0-15.0) % Plt Count 150 (150-400) K/uL MPV 10.20 (7.40-12.00) fL Neut % (Auto) 55.4 (48.0-80.0) % Lymph % (Auto) 22.6 (16.0-40.0) % Catron % (Auto) 15.5 H (0.0-15.0) % Eos % (Auto) 5.0 (0.0-7.0) % Baso % (Auto) 1.5 (0.0-1.5) % Neut # (Auto) 4.1 (1.4-5.7) K/uL Lymph # (Auto) 1.7 (0.6-2.4) K/uL Catron # (Auto) 1.1 H (0.0-0.8) K/uL Eos # (Auto) 0.4 (0.0-0.7) K/uL Baso # (Auto) 0.1 (0.0-0.1) K/uL Nucleated RBC % 0.0 /100WBC Nucleated RBCs # 0 K/uL Sodium (136-146) mmol/L Potassium (3.5-5.1) mmol/L Chloride (98-110) mmol/L Carbon Dioxide (21-31) mmol/L BUN (6.0-23.0) mg/dL Creatinine (0.6-1.5) mg/dL Est Cr Clr Drug Dosing mL/min Estimated GFR (MDRD) ml/min Glucose (60-110) mg/dL Calcium (8.8-10.8) mg/dL Phosphorus (2.4-4.7) mg/dL Magnesium (1.5-2.3) mEq/L Total Bilirubin (0.1-1.5) mg/dL AST (5-40) IU/L ALT (8-54) IU/L Alkaline Phosphatase (40-150) Troponin I 0.33 H* 0.43 H* (0.0-0.29) NG/ML Total Protein (6.0-8.0) g/dL Albumin (3.5-5.0) g/dL Globulin (2.0-3.5) g/dL Albumin/Globulin Ratio (1.3-2.8) Triglycerides (10-190) mg/dL Cholesterol (131-240) mg/dL LDL Cholesterol, Calc (60-180) mg/dL VLDL Cholesterol (5-55) mg/dL HDL Cholesterol (40-80) mg/dL Cholesterol/HDL Ratio (3.3-6.0) 11/19/16 Range/Units 04:57 WBC (4.0-11.0) K/uL RBC (4.50-5.90) M/uL Hgb (13.0-17.0) g/dL Hct (38.0-50.0) % MCV (80.0-98.0) fL MCH (27.0-32.0) pg MCHC (31.0-37.0) g/dL RDW Std Deviation (28.0-62.0) fl RDW Coeff of Dave (11.0-15.0) % Plt Count (150-400) K/uL MPV (7.40-12.00) fL Neut % (Auto) (48.0-80.0) % Lymph % (Auto) (16.0-40.0) % Catron % (Auto) (0.0-15.0) % Eos % (Auto) (0.0-7.0) % Baso % (Auto) (0.0-1.5) % Neut # (Auto) (1.4-5.7) K/uL Lymph # (Auto) (0.6-2.4) K/uL Catron # (Auto) (0.0-0.8) K/uL Eos # (Auto) (0.0-0.7) K/uL Baso # (Auto) (0.0-0.1) K/uL Nucleated RBC % /100WBC Nucleated RBCs # K/uL Sodium 138 (136-146) mmol/L Potassium 4.3 (3.5-5.1) mmol/L Chloride 98 (98-110) mmol/L Carbon Dioxide 26 (21-31) mmol/L BUN 39 H (6.0-23.0) mg/dL Creatinine 8.1 H (0.6-1.5) mg/dL Est Cr Clr Drug Dosing 14.24 mL/min Estimated GFR (MDRD) 7.4 ml/min Glucose 102 (60-110) mg/dL Calcium 9.7 (8.8-10.8) mg/dL Phosphorus 8.0 H (2.4-4.7) mg/dL Magnesium 1.7 (1.5-2.3) mEq/L Total Bilirubin 0.4 (0.1-1.5) mg/dL AST 21 (5-40) IU/L ALT 18 (8-54) IU/L Alkaline Phosphatase 68 (40-150) Troponin I (0.0-0.29) NG/ML Total Protein 6.7 (6.0-8.0) g/dL Albumin 3.9 (3.5-5.0) g/dL Globulin 2.8 (2.0-3.5) g/dL Albumin/Globulin Ratio 1.4 (1.3-2.8) Triglycerides 64 (10-190) mg/dL Cholesterol 166 (131-240) mg/dL LDL Cholesterol, Calc 65 (60-180) mg/dL VLDL Cholesterol 13 (5-55) mg/dL HDL Cholesterol 88 H (40-80) mg/dL Cholesterol/HDL Ratio 1.9 L (3.3-6.0) Med Orders - Current: Current Medications Amlodipine Besylate (Norvasc) 10 mg PO BEDTIME [facility] Last Admin: 11/18/16 22:24 Dose: 10 mg Calcium Carbonate/Glycine (Tums) 1,500 mg PO TID [facility] Last Admin: 11/19/16 06:08 Dose: 1,500 mg Carvedilol (Coreg) 75 mg PO TID [facility] Morphine Sulfate (Morphine) 4 mg IVPUSH Q2H PRN PRN Reason: Pain (moderate 4-6) Last Admin: 11/19/16 07:24 Dose: 4 mg Nitroglycerin (Nitro-Bid 2%) 1 gm TOP Q6H [facility] Last Admin: 11/19/16 05:47 Dose: 1 gm Ondansetron HCl (Zofran) 4 mg IVPUSH Q4H PRN PRN Reason: Nausea/Vomiting Last Admin: 11/19/16 07:46 Dose: 4 mg Sodium Chloride (Saline Flush) 10 ml FLUSH ASDIRECTED PRN PRN Reason: Keep Vein Open Last Admin: 11/18/16 16:42 Dose: 10 ml Sodium Chloride (Saline Flush) 2.5 ml FLUSH ASDIRECTED PRN PRN Reason: Keep Vein Open Last Admin: 11/18/16 16:42 Dose: 2.5 ml Sucralfate (Carafate) 1 gm PO Q6H [facility] Last Admin: 11/19/16 03:32 Dose: 1 gm Temazepam (Restoril) 15 mg PO BEDTIME PRN PRN Reason: Sleep Discontinued Medications Albuterol/Ipratropium (Duoneb 3.0-0.5 Mg/3 Ml) 3 ml NEB ONETIME ONE Stop: 11/18/16 15:34 Last Admin: 11/18/16 15:39 Dose: 3 ml Albuterol/Ipratropium (Duoneb 3.0-0.5 Mg/3 Ml) 3 ml NEB ONETIME ONE Stop: 11/18/16 16:09 Last Admin: 11/18/16 16:22 Dose: 3 ml Albuterol/Ipratropium (Duoneb 3.0-0.5 Mg/3 Ml) 3 ml NEB ONETIME ONE Stop: 11/18/16 16:11 Last Admin: 11/18/16 16:34 Dose: Not Given Amlodipine Besylate (Norvasc) 10 mg PO BEDTIME [facility] Aspirin (Aspirin) 324 mg PO ONETIME ONE Stop: 11/18/16 15:37 Last Admin: 11/18/16 15:48 Dose: 324 mg Aspirin (Aspirin) 324 mg PO ONETIME ONE Stop: 11/19/16 07:50 Al Hydroxide/Mg Hydroxide 15 ml/ Metoclopramide HCl 5 mg/Lidocaine HCl 5 ml 0 ml PO ONETIME ONE Stop: 11/18/16 16:21 Last Admin: 11/18/16 16:28 Dose: 1 each Sodium Chloride (Normal Saline) 1,000 mls @ 200 mls/hr IV .Bolus ONE Stop: 11/18/16 20:58 Last Admin: 11/18/16 16:04 Dose: Not Given Sodium Chloride (Normal Saline) 1,000 mls @ 999 mls/hr IV .Bolus ONE Stop: 11/18/16 17:02 Last Infusion: 11/18/16 16:20 Dose: 125 mls/hr Morphine Sulfate (Morphine) 4 mg IVPUSH ONETIME ONE Stop: 11/18/16 16:32 Last Admin: 11/18/16 16:37 Dose: 4 mg Nitroglycerin (Nitrostat) 0.4 mg SL Q5M MADDI Stop: 11/18/16 15:56 Last Admin: 11/18/16 16:12 Dose: 0.4 mg Non-Formulary Medication (Losartan) 25 mg PO DAILY [facility] Non-Formulary Medication (Amlodipine) 10 mg PO DAILY [facility] Non-Formulary Medication (Hydralazine) 300 mg PO Q8H [facility] Last Admin: 11/18/16 21:51 Dose: Not Given Ondansetron HCl (Zofran) 4 mg IVPUSH ONETIME ONE Stop: 11/18/16 15:38 Last Admin: 11/18/16 15:52 Dose: 4 mg Ondansetron HCl (Zofran) 4 mg IVPUSH ONETIME ONE Stop: 11/18/16 16:45 Last Admin: 11/18/16 16:48 Dose: 4 mg Pantoprazole Sodium (Protonix Iv) 80 mg IVPUSH .BOLUS ONE Stop: 11/18/16 15:38 Last Admin: 11/18/16 16:07 Dose: 80 mg *Q Meaningful Use (DIS) - VTE *Q VTE Criteria *Q: - Stroke *Q Stroke Criteria *Q: - AMI *Q AMI Criteria *Q:
[2016-11-19] MEDS ORDERED: Non-Formulary Medication 1 Each (Losartan 25 MG) PO SCH (09:00)
[2016-11-19] MEDS ORDERED: Non-Formulary Medication 1 Each (Amlodipine 10 MG) PO SCH (09:00)
[2016-11-19 10:24] VITALS: BP 149/85
--- NOTE | 2016-11-19 10:48 | CT ---
EXAM DATE: 11/18/16 PATIENT'S AGE: 41 Patient: DUC MORALES Facility: [place], [place] Site . Site : 1975 Study: CT Abdomen/Pelvis WO CONT [id number]/13/2017 8:06:46 PM Ordering Physician: Kylie Bob Final Report: INDICATION: Possible pancreatitis. TECHNIQUE: CT abdomen and pelvis acquired without contrast. COMPARISON: None. FINDINGS: Lower chest: Trace left pleural effusion with left pleural thickening and calcifications suggesting sequela of prior insult. Associated left basilar scarring or atelectasis. Mild right lower lobe atelectasis. Liver: Unremarkable. Spleen: Unremarkable. Pancreas: Unremarkable. No CT evidence of acute pancreatitis. No peripancreatic fluid collection. Gallbladder and bile ducts: Gallbladder appears surgically absent. Kidneys: Bilateral renal atrophy. No evidence of urolithiasis or hydroureteronephrosis. Adrenal glands: Unremarkable. GI tract: No bowel obstruction or focal inflammatory changes. No free air or free fluid. Vascular structures: Subtle retroperitoneal/periaortic stranding and borderline lymph nodes. No acute retroperitoneal hemorrhage. Aortic atherosclerosis. No abdominal aortic aneurysm. Pelvic Organs: Unremarkable. Bones: Mild to moderate multilevel degenerative changes. Bilateral pars defects at L5-S1 with grade 1 anterolisthesis of L5 on S1. Mild degenerate changes of the bilateral hips, left greater than right. IMPRESSION: Subtle retroperitoneal/periaortic stranding and borderline lymphadenopathy may be infectious or inflammatory. More progressive etiologies are also possible. Followup imaging to document stability/resolution is recommended. No definite CT evidence of acute pancreatitis. Bilateral renal atrophy. Left pleural thickening, calcifications and left lobe basilar atelectasis suggesting sequela of prior trauma or insult. Dictated by Duc Rivera MD @ 11/18/2016 8:23:11 PM Dictated by: Duc Rivera MD @ 11/18/2016 20:23:29 (Electronic Signature) Report Signed by Proxy. [facility] WIN[facility] PSYCHIATRIC HOSPITALKiersten
--- NOTE | 2016-11-19 14:53 | CONS ---
DATE OF CONSULTATION: 11/18/2016 DATE OF : 1975 PRIMARY CARE PHYSICIAN: None PCP REASON FOR CONSULTATION: Chest pain. HISTORY OF PRESENT ILLNESS: This is a 41-year-old male with history of hypertension, end-stage renal disease, on hemodialysis Tuesday, and Tuesday, presented to the hospital at this time because of severe excruciating chest pain. He had a dialysis today which is not completed due to the blood clot in his fistula and he stated that his blood pressure was severely elevated 240/118. He stated that he has no symptoms, however, he feels some slight chest pain that he describes as sharp pain in his chest wall, nonradiating and lasted for few minutes, going to his neck and arms. After he finished his dialysis, which is not completed, when he got back home, his blood pressure was better. He took his medication. However, the chest pain was started. It was quite excruciating pain in his central chest wall going back to his neck and arm, not to his back and it was 10/10 and then he comes to the emergency room. Initial EKG showed sinus rhythm with poor R-progression and there were some ST abnormalities in V1, in V2 and V3 possibly due to early repolarization which is seemed to be unchanged from the previous EKG and his troponin was 0.25 which is intermediate range, indeterminate troponin elevation. When he got to the emergency room, he received three nitro pills and the nitro pills have helped the pain down from 10 to 4-5 and he also received a dose of morphine as well. Currently, the pain seemed to be comfortable to him. He said that he was first diagnosed with hypertension for a long time but however three years ago, he was admitted in [facility], for severely elevated blood pressure as well as acute kidney injuries and then two months later he was recommended to have a permanent dialysis and he has been dialysis dependent since. At one time he said he was told that he will be on the list for a transplant, but he has not talked to the transplant regasification plant operator yet. Because he left his job and he cannot keep his house in [place], he has to move to [facility] 6 months ago and he has not established with his primary care in [place] yet. However, he still had a dialysis which is set up by Nephrology in [place] that has to be done in [place]. He stated that he decided to have it done in [place] because there will be a long less for dialysis in [place] that is why he decided to move to [place] and have dialysis done here and he did not have a primary care physician yet. Currently, when I saw the patient, we have so limited of the information regarding his medical history and medical information in our system. Apparently, he was here in September because of his severe chest pain as well. At that time troponin was indeterminate as well with EKG showing atrial fibrillation and there is ST abnormality in V1 and V2 as well as V5 and V6. At that time, he was emergently transferred to [place] and we do not have any record when he was admitted in [place] however. Per patient's report, he was there only half an hour and then he was discharged home. He did not see any machine cell tuber. Today, he has been in sinus and today was the first time that he was told that he also has an atrial fibrillation. MEDICATIONS: Still unclear. However from our system, from inpatient pharmacy system, he seemed to take amlodipine 10 mg once a day, hydralazine 300 mg q.8 hours, Coreg 75 mg t.i.d. as well as Cozaar 25 mg daily. Other than that he is still working as a retail cashier associate, he is to retire. No leg swelling. No orthopnea. No PND. No heart racing. PAST MEDICAL HISTORY: End-stage renal disease, dialysis dependent. Hypertension. He denied diabetes. He denied heart attack, having a stress test done or high cholesterol. ALLERGIES: No known drug allergies. FAMILY HISTORY: No family history of kidney problem or heart attack. SOCIAL HISTORY: He currently smoking half a pack a day. No recreational drug use or alcohol drinking. REVIEW OF SYSTEMS: Reviewed. No pertinent complaints except indicated in HPI. PHYSICAL EXAMINATION: VITAL SIGNS: Blood pressure 136/78, heart rate of 83, temperature of 36.1, 99 on room air. The pain score right now down to 3 after receiving some morphine as well as nitroglycerin. HEENT: No pallor. No jaundice. No JVD. HEART: Normal S1, S2. No murmur. Regular rate and rhythm. LUNGS: Clear bilaterally. No wheezing. No crackles. ABDOMEN: Soft, nontender. Bowel sounds present. No hepatosplenomegaly. EXTREMITIES: Legs, no edema and left arm has a fistula formed. INVESTIGATIONS: CBC showed WBC 7.3, hematocrit 32, platelet 150. Sodium 136, potassium 4.1, chloride 95, bicarb 27, BUN 29, creatinine 6.5, glucose 165, troponin 0.25 indeterminate range. Amylase is 223. Lipase is 289. Has also CAT scan of abdomen, no evidence of acute pancreatitis and left pleura thickening, calcification in left lobe basilar. Chest x-ray. There is some left costophrenic angle, it not clear if blunted and no widening mediastinum. ASSESSMENT AND PLAN: This is a 41-year-old male with history of end-stage renal disease, hypertension, been dialysis dependent for 2 years, presented to the hospital with chest pain, history of atrial fibrillation. The first set of enzyme did show indeterminate range of troponin elevation and I think it will be reasonable to keep him in the hospital and from the chest pain standpoint, I did not feel like it was a cardiac angina. However, he will need to be observed in the hospital. I think it would be feasible to keep him here. If he saw the elevation troponin or EKG changes with the repeat EKG, I think would be reasonable to transfer him from the hospital for further care. At this point regarding the transfer as well as transportation, I will keep him in here at the hospital and I will recommend to cycle cardiac enzymes as well as repeat EKG and I will also obtain the medical records from [facility] as well as the [facility] because so far we do not have any information regarding his medical problems. I will follow the patient the next day. QUETA MANE /[id number]
[2016-11-19] MEDS ORDERED: amLODIPine 5 MG Tab PO SCH (21:00)
== END 2016-11-19 08:45 | disposition home or self-care (01) ==
LOC: MW.ED 15:18 → MW.MS 17:16
PROVIDERS: ADMIT Family Medicine; ATTEND Family Medicine
DX: R07.89 Other chest pain (principal); I12.0 Hypertensive chronic kidney disease with stage 5 chronic kidney disease or end stage renal disease; N18.6 End stage renal disease; K85.90 Acute pancreatitis without necrosis or infection, unspecified; F17.210 Nicotine dependence, cigarettes, uncomplicated; I48.91 Unspecified atrial fibrillation; Z99.2 Dependence on renal dialysis; Z90.49 Acquired absence of other specified parts of digestive tract; Z79.899 Other long term (current) drug therapy
CPT/HCPCS: 36415; 71010; 74176; 80053; 80061; 82150; 83690; 83735; 84100; 84484; 85025; 85610; 93005; 94640; 94664; 96361; 96374; 96375; 96376; 99285; A9270; C9113; J2270; J2405; J7040; 99284; G0378

== ENCOUNTER 2016-11-24 10:28 | Emergency (ER) | payer SELFPAY ==
[2016-11-24] MEDS ORDERED: Sodium Chloride 0.9% 2.5 ML Syringe FLUSH PRN (10:35)
[2016-11-24] MEDS ORDERED: Aspirin 81 MG Tab.Chew PO ONE (10:35)
[2016-11-24] MEDS ORDERED: Sodium Chloride 0.9% 10 ML Syringe FLUSH PRN (10:35)
[2016-11-24] MEDS ORDERED: Sodium Chloride 0.9% 1,000 ML IV ONE (10:35)
[2016-11-24] MEDS ORDERED: Famotidine 20 MG/2 ML SDV IVPUSH ONE (10:35)
[2016-11-24] MEDS ORDERED: Nitroglycerin 2% Oint 1 GM UD Packet TOP ONE (10:35)
--- NOTE | 2016-11-24 10:39 | EDM.PDOC ---
ED HPI GENERAL MEDICAL PROBLEM - General Stated Complaint: CHEST PAIN Time Seen by Provider: 11/24/16 10:37 Source of Information: Reports: Patient History Limitations: Reports: No Limitations - History of Present Illness INITIAL COMMENTS - FREE TEXT/NARRATIVE: HISTORY AND PHYSICAL: []Patient known to us in the ER 41-year-old male presenting with right-sided chest pain to shoulder and right arm History of Present Illness: []Pain started about 7:00 this morning has gradually worsened over the past 4 hours/ pain described 8/10 into his chest He does complain of some shortness of breath History states he felt fine yesterday Last week was transported to [place] with chest pain acute coronary syndrome He did receive a prescription for Nitrostat but did not fill this as he did not have any funds Review of Systems: As per history of present illness and below otherwise all systems reviewed and negative. Past medical history: As per history of present illness and as reviewed below otherwise noncontributory. Surgical history: As per history of present illness and as reviewed below otherwise noncontributory. Social history: No reported history of drug or alcohol abuse. Family history: As per history of present illness and as reviewed below otherwise noncontributory. Physical exam: Alert and oriented male skin is warm and dry answering questions appropriately HEENT: Atraumatic, normocehpalic, pupils reactive, negative for conjunctival pallor or scleral icterus, mucous membranes moist, throat clear, neck supple, nontender, trachea midline. Lungs: Clear to auscultation, breath sounds equal bilaterally, chest non tender. Heart: S1S2, regular, negative for clicks, rubs, or JVD. Abdomen: Soft, nondistended, nontender. Negative for masses or hepatossplenmegaly. Negative for costovertebral tenderness. Pelvis: Stable nontender. Genitourinary: Deferred. Rectal: Deferred Extremities: Atraumatic, negative for cords or calf pain. Neurovascular unremarkable. Neuro: Awake, alert, oriented. Cranial nerves II through XII unremarkable. Cerebellum unremarkable. Motor and sensory unremarkable throughout. Exam nonfocal. Diagnostics: [Chest pain protocol] Therapeutics: [Nitrostat Nitro-Bid Zofran morphine] Impression: []Acute coronary syndrome Atypical pain Plan: []Home Follow up with your primary care provider Definitive disposition and diagnosis as appropriate pending reevaluation and review of above. Onset: Today, Sudden Duration: Hour(s):, Getting Worse Location: Reports: Chest Quality: Reports: Ache, Stabbing Severity: Moderate Improves with: Reports: None Worsens with: Reports: None Associated Symptoms: Reports: No Other Symptoms left chest Pain Score (Numeric/FACES): 10 - Related Data Allergies Allergy/AdvReac Type Severity Reaction Status Date / Time No Known Allergies Allergy Verified 11/24/16 10:38 Home Meds: Home Meds Calcium Carbonate [Tums] 1,500 mg PO TID 10/02/16 [History] Carvedilol [Coreg] 75 mg PO TID 10/02/16 [History] Losartan [Cozaar] 25 mg PO DAILY 10/02/16 [History] amLODIPine [Norvasc] 10 mg PO DAILY 10/02/16 [History] hydrALAZINE [Apresoline] 300 mg PO Q8H 10/02/16 [History] Past Medical History HEENT History: Reports: None Cardiovascular History: Reports: Hypertension Respiratory History: Reports: None. Denies: COPD Gastrointestinal History: Reports: None. Denies: Cirrhosis Genitourinary History: Reports: Chronic Renal Insuffiency, Dialysis Other Genitourinary History: on hemodialysis; fistula on left arm Musculoskeletal History: Reports: None Neurological History: Reports: None Psychiatric History: Reports: None Endocrine/Metabolic History: Reports: None. Denies: Diabetes, Type II Hematologic History: Reports: None Immunologic History: Reports: None Oncologic (Cancer) History: Reports: None Dermatologic History: Reports: None - Infectious Disease History Infectious Disease History: Reports: Chicken Pox - Past Surgical History Head Surgeries/Procedures: Reports: None GI Surgical History: Reports: Appendectomy Social & Family History - Family History Family Medical History: Noncontributory - Tobacco Use Smoking Status *Q: Current Every Day Smoker Years of Tobacco use: 23 Packs/Tins Daily: 0.5 - Caffeine Use Caffeine Use: Reports: Coffee Caffeine Use Comment: 1cup/day - Recreational Drug Use Recreational Drug Use: No ED ROS GENERAL - Review of Systems Review Of Systems: ROS reveals no pertinent complaints other than HPI. ED EXAM, GENERAL - Physical Exam Exam: See Below (See dictation) EKG INTERPRETATION Rhythm: NSR Comparison: No Change Course - Vital Signs Last Recorded V/S: Last Vital Signs Temp 36.0 C 11/24/16 10:39 Pulse 84 11/24/16 12:58 Resp 16 11/24/16 12:58 BP 129/74 11/24/16 12:58 Pulse Ox 100 11/24/16 12:58 - Orders/Labs/Meds Orders: Active Orders 24 hr Category Date Time Status Cardiac Monitoring [RC] . DIRECTED Care 11/24/16 10:35 Active EKG Documentation Completion [RC] STAT Care 11/24/16 10:35 Active Oxygen Therapy [RC] ASDIRECTED Care 11/24/16 10:35 Active UA W/MICROSCOPIC [URIN] Stat Lab 11/24/16 10:35 Uncollected Sodium Chloride 0.9% [Saline Flush] Med 11/24/16 10:35 Active 10 ml FLUSH ASDIRECTED PRN Sodium Chloride 0.9% [Saline Flush] Med 11/24/16 10:35 Active 2.5 ml FLUSH ASDIRECTED PRN Saline Lock Insert [OM.PC] Stat Oth 11/24/16 10:35 Ordered Medication Orders Sodium Chloride (Saline Flush) 10 ml FLUSH ASDIRECTED PRN PRN Reason: Keep Vein Open Last Admin: 11/24/16 10:49 Dose: 10 ml Sodium Chloride (Saline Flush) 2.5 ml FLUSH ASDIRECTED PRN PRN Reason: Keep Vein Open Last Admin: 11/24/16 10:55 Dose: 2.5 ml Labs: Laboratory Tests 11/24/16 11/24/16 11/24/16 Range/Units 10:45 10:45 10:45 WBC 8.58 (4.0-11.0) K/uL RBC 3.21 L (4.50-5.90) M/uL Hgb 11.1 L (13.0-17.0) g/dL Hct 33.3 L (38.0-50.0) % MCV 103.7 H (80.0-98.0) fL MCH 34.6 H (27.0-32.0) pg MCHC 33.3 (31.0-37.0) g/dL RDW Std Deviation 57.6 (28.0-62.0) fl RDW Coeff of Dave 15 (11.0-15.0) % Plt Count 189 (150-400) K/uL MPV 10.70 (7.40-12.00) fL Neut % (Auto) 71.9 (48.0-80.0) % Lymph % (Auto) 13.4 L (16.0-40.0) % [place] % (Auto) 10.5 (0.0-15.0) % Eos % (Auto) 2.7 (0.0-7.0) % Baso % (Auto) 1.5 (0.0-1.5) % Neut # (Auto) 6.2 H (1.4-5.7) K/uL Lymph # (Auto) 1.2 (0.6-2.4) K/uL [place] # (Auto) 0.9 H (0.0-0.8) K/uL Eos # (Auto) 0.2 (0.0-0.7) K/uL Baso # (Auto) 0.1 (0.0-0.1) K/uL Nucleated RBC % 0.0 /100WBC Nucleated RBCs # 0 K/uL INR 1.08 (0.86-1.11) D-Dimer, Quantitative 0.59 H (0.0-0.52) mg/LFEU Sodium 139 (136-146) mmol/L Potassium 4.3 (3.5-5.1) mmol/L Chloride 92 L (98-110) mmol/L Carbon Dioxide 26 (21-31) mmol/L BUN 28 H (6.0-23.0) mg/dL Creatinine 8.7 H (0.6-1.5) mg/dL Est Cr Clr Drug Dosing 12.51 mL/min Estimated GFR (MDRD) 6.9 ml/min Glucose 128 H (60-110) mg/dL Calcium 10.7 (8.8-10.8) mg/dL Total Bilirubin 0.5 (0.1-1.5) mg/dL AST 25 (5-40) IU/L ALT 26 (8-54) IU/L Alkaline Phosphatase 81 (40-150) Troponin I (0.0-0.29) NG/ML Total Protein 7.9 (6.0-8.0) g/dL Albumin 4.5 (3.5-5.0) g/dL Globulin 3.4 (2.0-3.5) g/dL Albumin/Globulin Ratio 1.3 (1.3-2.8) Amylase 145 H (10-90) U/L Lipase 91 H (7-80) U/L 11/24/16 Range/Units 10:45 WBC (4.0-11.0) K/uL RBC (4.50-5.90) M/uL Hgb (13.0-17.0) g/dL Hct (38.0-50.0) % MCV (80.0-98.0) fL MCH (27.0-32.0) pg MCHC (31.0-37.0) g/dL RDW Std Deviation (28.0-62.0) fl RDW Coeff of Dave (11.0-15.0) % Plt Count (150-400) K/uL MPV (7.40-12.00) fL Neut % (Auto) (48.0-80.0) % Lymph % (Auto) (16.0-40.0) % [place] % (Auto) (0.0-15.0) % Eos % (Auto) (0.0-7.0) % Baso % (Auto) (0.0-1.5) % Neut # (Auto) (1.4-5.7) K/uL Lymph # (Auto) (0.6-2.4) K/uL [place] # (Auto) (0.0-0.8) K/uL Eos # (Auto) (0.0-0.7) K/uL Baso # (Auto) (0.0-0.1) K/uL Nucleated RBC % /100WBC Nucleated RBCs # K/uL INR (0.86-1.11) D-Dimer, Quantitative (0.0-0.52) mg/LFEU Sodium (136-146) mmol/L Potassium (3.5-5.1) mmol/L Chloride (98-110) mmol/L Carbon Dioxide (21-31) mmol/L BUN (6.0-23.0) mg/dL Creatinine (0.6-1.5) mg/dL Est Cr Clr Drug Dosing mL/min Estimated GFR (MDRD) ml/min Glucose (60-110) mg/dL Calcium (8.8-10.8) mg/dL Total Bilirubin (0.1-1.5) mg/dL AST (5-40) IU/L ALT (8-54) IU/L Alkaline Phosphatase (40-150) Troponin I 0.29 (0.0-0.29) NG/ML Total Protein (6.0-8.0) g/dL Albumin (3.5-5.0) g/dL Globulin (2.0-3.5) g/dL Albumin/Globulin Ratio (1.3-2.8) Amylase (10-90) U/L Lipase (7-80) U/L Meds: Medications Generic Name Dose Route Start Last Admin Trade Name Freq PRN Reason Stop Dose Admin Sodium Chloride 10 ml 11/24/16 10:35 11/24/16 10:49 Saline Flush FLUSH 10 ml ASDIRECTED PRN Administration Keep Vein Open Sodium Chloride 2.5 ml 11/24/16 10:35 11/24/16 10:55 Saline Flush FLUSH 2.5 ml ASDIRECTED PRN Administration Keep Vein Open Discontinued Medications Generic Name Dose Route Start Last Admin Trade Name Freq PRN Reason Stop Dose Admin Aspirin 324 mg 11/24/16 10:35 11/24/16 10:48 Aspirin PO 11/24/16 10:36 324 mg ONETIME ONE Administration Famotidine 20 mg 11/24/16 10:35 11/24/16 10:48 Pepcid IVPUSH 11/24/16 10:36 20 mg ONETIME ONE Administration Hydromorphone HCl 0.5 mg 11/24/16 14:15 Dilaudid IM 11/24/16 14:16 ONETIME ONE Sodium Chloride 1,000 mls @ 999 mls/hr 11/24/16 10:35 11/24/16 10:46 Normal Saline IV 11/24/16 11:35 999 mls/hr .Bolus ONE Administration Ketorolac Tromethamine 30 mg 11/24/16 13:39 11/24/16 13:44 Toradol IVPUSH 11/24/16 13:40 30 mg ONETIME ONE Administration Lorazepam 1 mg 11/24/16 13:23 Ativan IVPUSH 11/24/16 13:24 ONETIME ONE Morphine Sulfate 2 mg 11/24/16 10:55 11/24/16 11:07 Morphine IV 11/24/16 10:56 2 mg ONETIME ONE Administration Morphine Sulfate 2 mg 11/24/16 13:20 Morphine IVPUSH 11/24/16 13:21 ONETIME ONE Nitroglycerin 0.4 mg 11/24/16 10:35 11/24/16 10:59 Nitrostat SL 11/24/16 10:36 0.4 mg ONETIME ONE Administration Nitroglycerin 1 gm 11/24/16 10:35 11/24/16 11:09 Nitro-Bid 2% TOP 11/24/16 10:36 1 gm ONETIME ONE Administration Ondansetron HCl 4 mg 11/24/16 10:55 11/24/16 11:05 Zofran IVPUSH 11/24/16 10:56 4 mg ONETIME ONE Administration Departure - Departure Time of Disposition: 14:30 Disposition: Home, Self-Care 01 Condition: Good Clinical Impression: Atypical chest pain, Acute coronary syndrome - Discharge Information Additional Instructions: The following information is given to patients seen in the emergency department who are being discharged to home. This information is to outline your options for follow-up care. We provide all patients seen in our emergency department with a follow-up referral. The need for follow-up, as well as the timing and circumstances, are variable depending upon the specifics of your emergency department visit. If you don't have a primary care physician on staff, we will provide you with a referral. We always advise you to contact your personal physician following an emergency department visit to inform them of the circumstance of the visit and for follow-up with them and/or the need for any referrals to a consulting specialist. The emergency department will also refer you to a specialist when appropriate. This referral assures that you have the opportunity for followup care with a specialist. All of these measure are taken in an effort to provide you with optimal care, which includes your followup. Under all circumstances we always encourage you to contact your private physician who remains a resource for coordinating your care. When calling for followup care, please make the office aware that this follow-up is from your recent emergency room visit. If for any reason you are refused follow-up, please contact the [facility] emergency department at and asked to speak to the emergency department charge nurse. Physical prescriptions that he has been given in the past - My Orders Last 24 Hours: My Active Orders 11/24/16 10:35 Cardiac Monitoring [RC] . DIRECTED EKG Documentation Completion [RC] STAT Oxygen Therapy [RC] ASDIRECTED UA W/MICROSCOPIC [URIN] Stat Sodium Chloride 0.9% [Saline Flush] 10 ml FLUSH ASDIRECTED PRN Sodium Chloride 0.9% [Saline Flush] 2.5 ml FLUSH ASDIRECTED PRN Saline Lock Insert [OM.PC] Stat - Assessment/Plan Last 24 Hours: My Active Orders 11/24/16 10:35 Cardiac Monitoring [RC] . DIRECTED EKG Documentation Completion [RC] STAT Oxygen Therapy [RC] ASDIRECTED UA W/MICROSCOPIC [URIN] Stat Sodium Chloride 0.9% [Saline Flush] 10 ml FLUSH ASDIRECTED PRN Sodium Chloride 0.9% [Saline Flush] 2.5 ml FLUSH ASDIRECTED PRN Saline Lock Insert [OM.PC] Stat
[2016-11-24] MEDS: Nitroglycerin 0.4 MG Tab.SL SL ONE ×3 (10:47→10:59)
[2016-11-24] MEDS ORDERED: Ondansetron 4 MG/2 ML SDV IVPUSH ONE (10:55)
[2016-11-24] MEDS ORDERED: Morphine 10 MG/ML Syringe IV ONE (10:55)
--- NOTE | 2016-11-24 11:52 | CR ---
EXAMINATION: Portable chest radiograph. HISTORY: Chest pain. FINDINGS: The trachea is midline. The cardiomediastinal silhouette is within normal limits. Mild left basilar atelectasis and/or infiltrate, grossly unchanged. No pleural effusion or pneumothorax. Osseous structures appear unremarkable. IMPRESSION: Mild left basilar atelectasis and/or infiltrate, unchanged.
--- NOTE | 2016-11-24 13:15 | NM ---
EXAMINATION: NM Ventilation/perfusion scan HISTORY: Shortness of breath, elevated d-dimer COMPARISON: Chest radiograph from the same day TECHNIQUE: Multiplanar images were obtained of the chest following the administration of 4.1 mCi of technetium 99m labeled MAA and 43.8 mCi of technetium 99m labeled DTPA. FINDINGS: There is no ventilation perfusion mismatch. There is a fixed area of decreased uptake on b oth the ventilation and perfusion studies within the left lung base posteriorly, this correlates to an area of atelectasis and/or scarring noted on the previous chest radiographs. IMPRESSION: 1. Low probability for a pulmonary embolism.
[2016-11-24] MEDS ORDERED: Morphine 2 MG/ML Syringe IVPUSH ONE (13:20)
[2016-11-24] MEDS ORDERED: LORazepam 2 MG/ML MDV IVPUSH ONE (13:23)
[2016-11-24] MEDS ORDERED: Ketorolac 30 MG/ML SDV IVPUSH ONE (13:39)
[2016-11-24] MEDS ORDERED: HYDROmorphone 1 MG/ML Syringe IM ONE (14:15)
[2016-11-24 15:32] VITALS: BP 124/76
== END 2016-11-24 15:09 | disposition home or self-care (01) ==
LOC: MW.ED 10:28
DX: I24.9 Acute ischemic heart disease, unspecified (principal); I12.9 Hypertensive chronic kidney disease with stage 1 through stage 4 chronic kidney disease, or unspecified chronic kidney disease; N18.9 Chronic kidney disease, unspecified; F17.210 Nicotine dependence, cigarettes, uncomplicated; Z99.2 Dependence on renal dialysis; Z90.49 Acquired absence of other specified parts of digestive tract; Z79.899 Other long term (current) drug therapy
CPT/HCPCS: 36415; 71010; 78582; 80053; 82150; 83690; 84484; 85025; 85379; 85610; 93005; 96374; 96375; 99285; A9270; A9540; A9567; J1170; J1885; J2060; J2270; J2405; J7040; 99284

== ENCOUNTER 2016-11-27 09:43 | Emergency (ER) | payer SELFPAY ==
[2016-11-27] MEDS ORDERED: Morphine 10 MG/ML Syringe IV ONE (10:39)
--- NOTE | 2016-11-27 10:40 | EDM.PDOC ---
<Stephania Kaur - Last Filed: 11/27/16 10:39> ED HPI GENERAL MEDICAL PROBLEM - General Chief Complaint: Upper Extremity Injury/Pain Stated Complaint: PAIN IN RIGHT ARM Time Seen by Provider: 11/27/16 10:15 right upper extremity Pain Score (Numeric/FACES): 10 - Related Data Allergies Allergy/AdvReac Type Severity Reaction Status Date / Time No Known Allergies Allergy Verified 11/27/16 09:51 Home Meds: Home Meds amLODIPine [Norvasc] 10 mg PO BEDTIME 10/02/16 [History] Calcium Carbonate [Tums] 1,500 mg PO TIDMEALS 11/27/16 [History] Labetalol HCl [Labetalol] 600 mg PO Q8H 11/27/16 [History] Past Medical History HEENT History: Reports: None Cardiovascular History: Reports: Hypertension Respiratory History: Reports: None Gastrointestinal History: Reports: None. Denies: Cirrhosis Genitourinary History: Reports: Chronic Renal Insuffiency, Dialysis Other Genitourinary History: on hemodialysis; fistula on left arm Musculoskeletal History: Reports: None Neurological History: Reports: None Psychiatric History: Reports: None Endocrine/Metabolic History: Reports: None Hematologic History: Reports: None Immunologic History: Reports: None Oncologic (Cancer) History: Reports: None Dermatologic History: Reports: None - Infectious Disease History Infectious Disease History: Reports: Chicken Pox - Past Surgical History Head Surgeries/Procedures: Reports: None GI Surgical History: Reports: Appendectomy Social & Family History - Family History Family Medical History: Noncontributory - Tobacco Use Smoking Status *Q: Current Every Day Smoker Years of Tobacco use: 24 Packs/Tins Daily: 1 Used Tobacco, but Quit: Yes Month Tobacco Last Used: 11/2016 - Caffeine Use Caffeine Use: Reports: Coffee Caffeine Use Comment: 1cup/day - Recreational Drug Use Recreational Drug Use: No Course - Vital Signs Last Recorded V/S: Last Vital Signs Temp 97.3 F 11/27/16 09:53 Pulse 72 11/27/16 19:30 Resp 16 11/27/16 19:30 BP 134/83 11/27/16 19:30 Pulse Ox 96 11/27/16 19:30 - Orders/Labs/Meds Orders: Active Orders 24 hr Category Date Time Status EKG 12 Lead [EKG Documentation Completion] [RC] STAT Care 11/27/16 09:55 Active Meds: Medications Discontinued Medications Generic Name Dose Route Start Last Admin Trade Name Tyler PRN Reason Stop Dose Admin Labetalol HCl 20 mg 11/27/16 11:35 11/27/16 12:08 Normodyne IVPUSH 11/27/16 11:36 Not Given .BOLUS ONE Protocol Labetalol HCl 20 mg 11/27/16 12:00 11/27/16 12:09 Normodyne IVPUSH 11/27/16 12:01 20 mg .BOLUS ONE Administration Protocol Morphine Sulfate 2 mg 11/27/16 10:39 11/27/16 10:59 Morphine IV 11/27/16 10:40 2 mg ONETIME ONE Administration Ondansetron HCl 4 mg 11/27/16 10:46 11/27/16 10:59 Zofran IVPUSH 11/27/16 10:47 4 mg ONETIME ONE Administration Departure - Departure Disposition: Home, Self-Care 01 Clinical Impression: Right arm pain - Discharge Information Instructions: Shoulder Pain Referrals: PCP,Unknown [Primary Care Provider] - Forms: ED Department Discharge Additional Instructions: The following information is given to patients seen in the emergency department who are being discharged to home. This information is to outline your options for follow-up care. We provide all patients seen in our emergency department with a follow-up referral. The need for follow-up, as well as the timing and circumstances, are variable depending upon the specifics of your emergency department visit. If you don't have a primary care physician on staff, we will provide you with a referral. We always advise you to contact your personal physician following an emergency department visit to inform them of the circumstance of the visit and for follow-up with them and/or the need for any referrals to a consulting specialist. The emergency department will also refer you to a specialist when appropriate. This referral assures that you have the opportunity for follow-up care with a specialist. All of these measure are taken in an effort to provide you with optimal care, which includes your follow-up. Under all circumstances we always encourage you to contact your private physician who remains a resource for coordinating your care. When calling for follow-up care, please make the office aware that this follow-up is from your recent emergency room visit. If for any reason you are refused follow-up, please contact the [facility] emergency department at and asked to speak to the emergency department charge nurse. [facility] [address] [place] [phone] Call the above listed clinic early Tuesday morning to schedule an appointment to establish care with a provider. You may not be able to get in for a couple of days depending on providers availability. Continue the medications you've been prescribed. Return to ER as needed as discussed. <Arabella Strong - Last Filed: 11/27/16 20:03> ED HPI GENERAL MEDICAL PROBLEM - General Source of Information: Reports: Patient History Limitations: Reports: No Limitations - History of Present Illness INITIAL COMMENTS - FREE TEXT/NARRATIVE: HISTORY AND PHYSICAL: History of present illness: [Patient comes to the emergency room complaining of right shoulder pain. This pain has been ongoing for the past several months and he is known to this ER. He was seen at the [facility] in [place] yesterday and was prescribed tramadol for this pain. He states that tramadol doesn't help and the only thing that has been effective is morphine. His pain is not any different today than it usually is. He describes the pain as starting in his right wrist area and shooting up into his shoulder. He has tried to see the orthopedist but was referred to the emergency room per his report. He does not have a local PCP. Patient gets dialysis 3 times a week on Tuesdays and Saturdays. He just completed dialysis prior to coming to the ER for evaluation. Is under the care of Dr. Sifuentes for his renal failure. Patient states that he's been taking labetalol 3 times a day and Norvasc for high blood pressure. He states that he took all of his medications today. He was given prescriptions for his blood pressure medication at a recent ER visit per patient report. Pharmacies are contacted in [facility] and [place] and no prescriptions have been dispensed for patient 's blood pressure medication. [place] filled prescription yesterday for tramadol. When questioned about which blood pressure medication he picked up at his pharmacy and what he has been taking he states that he can't remember. ] Review of systems: As per history of present illness and below otherwise all systems reviewed and negative. Past medical history: As per history of present illness and as reviewed below otherwise noncontributory. Surgical history: As per history of present illness and as reviewed below otherwise noncontributory. Social history: No reported history of drug or alcohol abuse. Family history: As per history of present illness and as reviewed below otherwise noncontributory. Physical exam: HEENT: Atraumatic, normocephalic. Conjunctiva are injected. Lungs: Clear to auscultation, breath sounds equal bilaterally. Heart: S1S2, regular rate and rhythm. Extremities: Muscle tightness is appreciated to right scapula. Tender with palpation over the right upper extremity but pain is not reproducible. Positive Tinel's positive Phalen's. Neurovascular unremarkable. Neuro: Awake, alert, oriented. Motor and sensory unremarkable throughout. Exam nonfocal. Diagnostics: [EKG] Therapeutics: [Morphine 2 mg IV, Zofran 4 mg IV, labetalol 20 mg IV] Impression: [R shoulder pain Kidney failure Medication noncompliance] Plan: [Patient's blood pressure comes down nicely to 134/83 after labetalol. Instructed to fill the prescriptions that he was given and has at home. He verbalized understanding of these instructions. He is urged to establish care with a local primary care provider for referral for neurology and nerve conduction study. He is given referral information. He is offered hydrocodone which she states does not help his pain. He is discharged to home and is encouraged to take his regular prescribed medications. He is in agreement with today's plan.] Definitive disposition and diagnosis as appropriate pending reevaluation and review of above. Review of Systems - Review of Systems Review Of Systems: ROS reveals no pertinent complaints other than HPI. ED EXAM, GENERAL - Physical Exam Exam: See Below Departure - Departure Time of Disposition: 12:35 Preliminary Cause of *Q: Cardiac Arrest Condition: Good
[2016-11-27] MEDS ORDERED: Ondansetron 4 MG/2 ML SDV IVPUSH ONE (10:46)
[2016-11-27] MEDS ORDERED: Labetalol 5 MG/ML 5 ML Syringe IVPUSH ONE (11:35)
[2016-11-27] MEDS ORDERED: Labetalol 100 MG/20 ML MDV IVPUSH ONE (12:00)
[2016-11-27 19:31] VITALS: BP 134/83
== END 2016-11-27 13:02 | disposition home or self-care (01) ==
LOC: MW.ED 09:43
DX: M25.511 Pain in right shoulder (principal); I12.9 Hypertensive chronic kidney disease with stage 1 through stage 4 chronic kidney disease, or unspecified chronic kidney disease; N18.9 Chronic kidney disease, unspecified; F17.210 Nicotine dependence, cigarettes, uncomplicated; Z90.49 Acquired absence of other specified parts of digestive tract; Z91.14 Patient's other noncompliance with medication regimen
CPT/HCPCS: 93005; 96374; 96375; 99283; J2270; J2405; 99284

== ENCOUNTER 2017-05-07 13:09 | Observation (INO) | payer SELFPAY ==
[2017-05-07] MEDS ORDERED: Sodium Chloride 0.9% 2.5 ML Syringe FLUSH PRN (13:28)
[2017-05-07] MEDS ORDERED: Albuterol/Ipratropium 3.0-0.5 MG/3 ML Neb Soln NEB ONE (13:28)
--- NOTE | 2017-05-07 13:28 | EDM.PDOC ---
ED HPI GENERAL MEDICAL PROBLEM - General Stated Complaint: SOB Time Seen by Provider: 05/07/17 13:23 Source of Information: Reports: Patient History Limitations: Reports: No Limitations - History of Present Illness INITIAL COMMENTS - FREE TEXT/NARRATIVE: History of present illness: [41-year-old dialysis patient comes in status post dialysis where there was approximately 1 kg of fluid removed. Patient is short of breath satting in the high 70s to low 80 percentile and patient indicates he feels he has a pneumonia. ] Review of systems: As per history of present illness and below otherwise all systems reviewed and negative. Past medical history: As per history of present illness and as reviewed below otherwise noncontributory. Surgical history: As per history of present illness and as reviewed below otherwise noncontributory. Social history: No reported history of drug or alcohol abuse. Family history: As per history of present illness and as reviewed below otherwise noncontributory. Physical exam: HEENT: Atraumatic, normocephalic, pupils reactive, negative for conjunctival pallor or scleral icterus, mucous membranes moist, throat clear, neck supple, nontender, trachea midline. Lungs: Diminished throughout with coarse breath sounds in the apex, breath sounds equal bilaterally, chest nontender. Heart: S1S2, regular, negative for clicks, rubs, or JVD. Abdomen: Soft, nondistended, nontender. Negative for masses or hepatosplenomegaly. Negative for costovertebral tenderness. Pelvis: Stable nontender. Genitourinary: Deferred. Rectal: Deferred. Extremities: Atraumatic, negative for cords or calf pain. Neurovascular unremarkable. Neuro: Awake, alert, oriented. Cranial nerves II through XII unremarkable. Cerebellum unremarkable. Motor and sensory unremarkable throughout. Exam nonfocal. Diagnostics: [CBC, CMP, lactate, blood cultures, chest x-ray] Therapeutics: [Saline lock] Impression: [Dyspnea] Plan: [Admit to observation] Definitive disposition and diagnosis as appropriate pending reevaluation and review of above. - Related Data Allergies Allergy/AdvReac Type Severity Reaction Status Date / Time No Known Allergies Allergy Verified 05/07/17 13:33 Home Meds: Home Meds amLODIPine [Norvasc] 10 mg PO BEDTIME 10/02/16 [History] Minoxidil 2.5 mg PO BID 05/07/17 [History] Sevelamer HCl [Renagel] 1,600 mg PO TID 05/07/17 [History] Past Medical History HEENT History: Reports: None Cardiovascular History: Reports: Hypertension Respiratory History: Reports: None Gastrointestinal History: Reports: None. Denies: Cirrhosis Genitourinary History: Reports: Chronic Renal Insuffiency, Dialysis Other Genitourinary History: on hemodialysis; fistula on left arm Musculoskeletal History: Reports: None Neurological History: Reports: None Psychiatric History: Reports: None Endocrine/Metabolic History: Reports: None Hematologic History: Reports: None Immunologic History: Reports: None Oncologic (Cancer) History: Reports: None Dermatologic History: Reports: None - Infectious Disease History Infectious Disease History: Reports: Chicken Pox - Past Surgical History Head Surgeries/Procedures: Reports: None GI Surgical History: Reports: Appendectomy Social & Family History - Family History Family Medical History: Noncontributory - Tobacco Use Smoking Status *Q: Current Every Day Smoker Years of Tobacco use: 24 Packs/Tins Daily: 1 Used Tobacco, but Quit: Yes Month Tobacco Last Used: 11/2016 - Caffeine Use Caffeine Use: Reports: Coffee Caffeine Use Comment: 1cup/day - Recreational Drug Use Recreational Drug Use: No ED ROS GENERAL - Review of Systems Review Of Systems: See Below (See history of present illness) ED EXAM, GENERAL - Physical Exam Exam: See Below (See history of present illness) Course - Vital Signs Last Recorded V/S: Last Vital Signs Temp 38.7 C H 05/07/17 15:26 Pulse 104 H 05/07/17 15:26 Resp 20 05/07/17 15:26 BP 198/117 H 05/07/17 15:26 Pulse Ox 96 05/07/17 15:26 - Orders/Labs/Meds Orders: Active Orders 24 hr Category Date Time Status RT Aerosol Therapy [RC] ASDIRECTED Care 05/07/17 13:28 Active Chest 2V [CR] Stat Exams 05/07/17 13:28 Taken CULTURE BLOOD [BC] Stat Lab 05/07/17 13:39 Received CULTURE BLOOD [BC] Stat Lab 05/07/17 13:56 Received Sodium Chloride 0.9% [Saline Flush] Med 05/07/17 13:28 Active 2.5 ml FLUSH ASDIRECTED PRN Blood Culture x2 Reflex Set [OM.PC] Stat Oth 05/07/17 13:29 Ordered Saline Lock Insert [OM.PC] Stat Oth 05/07/17 13:28 Ordered Medication Orders Sodium Chloride (Saline Flush) 2.5 ml FLUSH ASDIRECTED PRN PRN Reason: Keep Vein Open Labs: Laboratory Tests 05/07/17 05/07/17 05/07/17 Range/Units 13:39 13:39 13:39 WBC 7.76 (4.0-11.0) K/uL RBC 3.48 L (4.50-5.90) M/uL Hgb 12.0 L (13.0-17.0) g/dL Hct 35.1 L (38.0-50.0) % MCV 100.9 H (80.0-98.0) fL MCH 34.5 H (27.0-32.0) pg MCHC 34.2 (31.0-37.0) g/dL RDW Std Deviation 54.4 (28.0-62.0) fl RDW Coeff of Dave 15 (11.0-15.0) % Plt Count 173 (150-400) K/uL MPV 10.10 (7.40-12.00) fL Neut % (Auto) 76.1 (48.0-80.0) % Lymph % (Auto) 11.0 L (16.0-40.0) % [place] % (Auto) 11.2 (0.0-15.0) % Eos % (Auto) 0.9 (0.0-7.0) % Baso % (Auto) 0.8 (0.0-1.5) % Neut # (Auto) 5.9 H (1.4-5.7) K/uL Lymph # (Auto) 0.9 (0.6-2.4) K/uL [place] # (Auto) 0.9 H (0.0-0.8) K/uL Eos # (Auto) 0.1 (0.0-0.7) K/uL Baso # (Auto) 0.1 (0.0-0.1) K/uL Nucleated RBC % 0.0 /100WBC Nucleated RBCs # 0 K/uL Lactate 1.0 (0.20-2.00) mmol/L Sodium 138 (136-146) mmol/L Potassium 3.1 L (3.5-5.1) mmol/L Chloride 95 L (98-110) mmol/L Carbon Dioxide 26 (21-31) mmol/L BUN 14 (6.0-23.0) mg/dL Creatinine 4.3 H (0.6-1.5) mg/dL Est Cr Clr Drug Dosing 26.07 mL/min Estimated GFR (MDRD) 15.5 ml/min Glucose 103 (60-110) mg/dL Calcium 11.0 H (8.8-10.8) mg/dL Total Bilirubin 0.8 (0.1-1.5) mg/dL AST 24 (5-40) IU/L ALT 18 (8-54) IU/L Alkaline Phosphatase 67 (40-150) Total Protein 8.5 H (6.0-8.0) g/dL Albumin 4.4 (3.5-5.0) g/dL Globulin 4.1 H (2.0-3.5) g/dL Albumin/Globulin Ratio 1.1 L (1.3-2.8) Meds: Medications Generic Name Dose Route Start Last Admin Trade Name Freq PRN Reason Stop Dose Admin Sodium Chloride 2.5 ml 05/07/17 13:28 Saline Flush FLUSH ASDIRECTED PRN Keep Vein Open Discontinued Medications Generic Name Dose Route Start Last Admin Trade Name Freq PRN Reason Stop Dose Admin Albuterol/Ipratropium 3 ml 05/07/17 13:28 05/07/17 13:45 Duoneb 3.0-0.5 Mg/3 Ml NEB 05/07/17 13:29 3 ml ONETIME ONE Administration Departure - Departure Time of Disposition: 16:18 Disposition: Refer to Observation Condition: Good Clinical Impression: Dyspnea - Discharge Information Referrals: PCP,Unknown [Primary Care Provider] - - My Orders Last 24 Hours: My Active Orders 05/07/17 13:28 RT Aerosol Therapy [RC] ASDIRECTED Chest 2V [CR] Stat Sodium Chloride 0.9% [Saline Flush] 2.5 ml FLUSH ASDIRECTED PRN Saline Lock Insert [OM.PC] Stat 05/07/17 13:29 Blood Culture x2 Reflex Set [OM.PC] Stat 05/07/17 13:39 CULTURE BLOOD [BC] Stat 05/07/17 13:56 CULTURE BLOOD [BC] Stat - Assessment/Plan Last 24 Hours: My Active Orders 05/07/17 13:28 RT Aerosol Therapy [RC] ASDIRECTED Chest 2V [CR] Stat Sodium Chloride 0.9% [Saline Flush] 2.5 ml FLUSH ASDIRECTED PRN Saline Lock Insert [OM.PC] Stat 05/07/17 13:29 Blood Culture x2 Reflex Set [OM.PC] Stat 05/07/17 13:39 CULTURE BLOOD [BC] Stat 05/07/17 13:56 CULTURE BLOOD [BC] Stat
[2017-05-07] MEDS ORDERED: cefTRIAXone 1 GM in Premix Bag 1 BAG IV SCH (18:00)
[2017-05-07] MEDS ORDERED: cefTRIAXone 1,000 MG VIAL IVPUSH SCH (18:00)
[2017-05-07] MEDS ORDERED: Azithromycin 500 MG in Sodium Chloride 0.9% 250 ML IV SCH (18:30)
[2017-05-07] MEDS ORDERED: Ondansetron 4 MG/2 ML SDV IVPUSH PRN (18:41)
--- NOTE | 2017-05-07 18:54 | PCM.HP ---
H&P History of Present Illness - General Admit Problem/Dx: Admission Diagnosis/Problem Admission Diagnosis/Problem Dyspnea - History of Present Illness Initial Comments - Free Text/Narative: 41 yo male with pmh of HTN and ESRD with dialysis Meg,Binu,Alexander, who presented following dialysis today with complaint of shortness of breath, productive cough , fevers, and myalgias. CXR showed mild left basilar infiltrate. He denies any chest pain, orthopnea, or weight gain. - Related Data Allergies/Adverse Reactions: Allergies Allergy/AdvReac Type Severity Reaction Status Date / Time No Known Allergies Allergy Verified 05/07/17 13:33 Home Medications: Home Meds amLODIPine [Norvasc] 10 mg PO BEDTIME 10/02/16 [History] Minoxidil 2.5 mg PO BID 05/07/17 [History] Sevelamer HCl [Renagel] 1,600 mg PO BID 05/07/17 [History] Past Medical History HEENT History: Reports: Impaired Vision Cardiovascular History: Reports: Hypertension Respiratory History: Reports: Pneumonia, Recurrent Gastrointestinal History: Reports: None Genitourinary History: Reports: Chronic Renal Insuffiency, Dialysis Other Genitourinary History: on hemodialysis; fistula on left arm Musculoskeletal History: Reports: Fracture Neurological History: Reports: None Psychiatric History: Reports: None Endocrine/Metabolic History: Reports: None Hematologic History: Reports: None Immunologic History: Reports: None Oncologic (Cancer) History: Reports: None Dermatologic History: Reports: None - Infectious Disease History Infectious Disease History: Reports: Chicken Pox - Past Surgical History Head Surgeries/Procedures: Reports: None GI Surgical History: Reports: Appendectomy, Colonoscopy Social & Family History - Family History Family Medical History: Noncontributory Neurological: Reports: Alzheimers Disease, Dementia Endocrine/Metabolic: Reports: Diabetes, type II Oncologic: Reports: Leukemia - Tobacco Use Smoking Status *Q: Former Smoker Years of Tobacco use: 20 Packs/Tins Daily: 1 Used Tobacco, but Quit: Yes Month Tobacco Last Used: April 2017 Second Hand Smoke Exposure: No - Caffeine Use Caffeine Use: Reports: Coffee Caffeine Use Comment: 1 cup coffee per day - Alcohol Use Days Per Week of Alcohol Use: 2 Number of Drinks Per Day: 3 Total Drinks Per Week: 6 Date of Last Drink: 04/27/17 - Recreational Drug Use Recreational Drug Use: No H&P Review of Systems - Review of Systems: Review Of Systems: ROS reveals no pertinent complaints other than HPI. Exam - Exam Exam: See Below - Vital Signs Vital Signs: Last Vital Signs Temp 38.6 C H 05/07/17 17:30 Pulse 103 H 05/07/17 17:30 Resp 24 H 05/07/17 17:30 BP 206/132 H 05/07/17 17:30 Pulse Ox 95 05/07/17 17:30 Weight: 97.5 kg - Exam General: Alert, Oriented HEENT: Mucosa Moist & [place] Neck: Supple Lungs: Clear to Auscultation, Normal Respiratory Effort. No: Crackles, Rhonchi , Wheezing Cardiovascular: Regular Rate, Regular Rhythm GI/Abdominal Exam: Soft, Non-Tender, No Distention Extremities: Non-Tender, No Pedal Edema Skin: Warm, Dry, Intact Neurological: No: Focal Deficit - Patient Data Result Diagrams: 05/07/17 13:39 05/07/17 13:39 *Q Meaningful Use (ADM) - VTE *Q VTE Criteria *Q: - Stroke *Q Stroke Criteria *Q: - AMI *Q AMI Criteria *Q: Problem List Initiated/Reviewed/Updated: Yes Orders Last 24hrs: Active Orders 24 hr Category Date Time Status Antiembolic Devices [RC] PER UNIT ROUTINE Care 05/07/17 18:42 Ordered Oxygen Therapy [RC] PRN Care 05/07/17 18:41 Ordered Up ad Sanjuana [RC] ASDIRECTED Care 05/07/17 18:41 Ordered VTE/DVT Education [RC] PER UNIT ROUTINE Care 05/07/17 18:41 Ordered Vital Signs [RC] Q4H Care 05/07/17 18:41 Ordered Renal Dialysis Diet [DIET] Diet 05/08/17 Breakfast Ordered BASIC METABOLIC PANEL,BMP [CHEM] AM Lab 05/09/17 05:11 Ordered BASIC METABOLIC PANEL,BMP [CHEM] AM Lab 05/10/17 05:11 Ordered BASIC METABOLIC PANEL,BMP [CHEM] AM Lab 05/08/17 05:11 Ordered CBC WITH AUTO DIFF [HEME] DAILY Lab 05/09/17 18:45 Ordered CBC WITH AUTO DIFF [HEME] DAILY Lab 05/07/17 18:45 Ordered CBC WITH AUTO DIFF [HEME] DAILY Lab 05/08/17 18:45 Ordered CULTURE SPUTUM + SMEAR [RM] Routine Lab 05/07/17 18:26 Uncollected INFLUENZA A+B AG SCREEN [RM] Routine Lab 05/07/17 18:26 Uncollected Azithromycin [Zithromax] 500 mg Med 05/07/17 18:00 Active Sodium Chloride 0.9% [Normal Saline] 250 ml IV Q24H Heparin Sodium Med 05/07/17 21:00 Ordered 5,000 units SUBCUT Q12HR Minoxidil Med 05/07/17 18:45 Ordered 2.5 mg PO BID Ondansetron [Zofran] Med 05/07/17 18:41 Ordered 4 mg IVPUSH Q4H PRN Sevelamer HCl [Renagel] Med 05/07/17 21:00 Ordered 1,600 mg PO BID amLODIPine Med 05/07/17 21:00 Ordered 10 mg PO BEDTIME cefTRIAXone [Rocephin in Dextrose,Iso-Osm 1 GM/50 ML] 1 Med 05/07/17 18:00 Active gm Premix Bag 1 bag IV Q24H Sequential Compression Device [OM.PC] Per Unit Routine Oth 05/07/17 18:41 Ordered Resuscitation Status Routine Resus Stat 05/07/17 18:41 Ordered Medication Orders Heparin Sodium (Porcine) (Heparin Sodium) 5,000 units SUBCUT Q12HR [facility] Azithromycin 500 mg/ Sodium (Chloride) 250 mls @ 250 mls/hr IV Q24H [facility] Ceftriaxone Sodium/Dextrose 1 (gm/ Premix) 50 mls @ 100 mls/hr IV Q24H [facility] Non-Formulary Medication (Amlodipine) 10 mg PO BEDTIME [facility] Non-Formulary Medication (Minoxidil) 2.5 mg PO BID [facility] Non-Formulary Medication (Sevelamer Hcl [Renagel]) 1,600 mg PO BID [facility] Ondansetron HCl (Zofran) 4 mg IVPUSH Q4H PRN PRN Reason: Nausea Sodium Chloride (Saline Flush) 2.5 ml FLUSH ASDIRECTED PRN PRN Reason: Keep Vein Open Assessment/Plan Comment:: 41 yo male with pmh of ESRD who presents with signs and symptoms suggestive of pneumonia. We will treat with Rocephin and azithromycin. We will also screen for influenza. His next dialysis is due tuesday but I suspect patient will be discharged before then. If not he may need to be transferred.
[2017-05-07] MEDS: Azithromycin 500 MG in Sodium Chloride 0.9% 250 ML IV SCH (20:37)
[2017-05-07] MEDS ORDERED: Sevelamer Carbonate 800 MG Tab PO SCH (21:00)
[2017-05-07] MEDS: MINOXIDIL 2.5 MG PO SCH ×2 (22:43→23:14)
[2017-05-07] MEDS: amLODIPine 5 MG Tab PO SCH (23:13)
[2017-05-07] MEDS: Heparin Sodium 5,000 Units/ML Vial SUBCUT SCH (23:15)
[2017-05-08] MEDS ORDERED: cloNIDine 0.1 MG Tab PO ONE (02:13)
[2017-05-08] MEDS: Heparin Sodium 5,000 Units/ML Vial SUBCUT SCH ×2 (08:45→21:14)
[2017-05-08] MEDS: Sevelamer Carbonate 800 MG Tab PO SCH ×2 (08:45→17:17)
[2017-05-08] MEDS: MINOXIDIL 2.5 MG PO SCH ×2 (08:46→21:16)
--- NOTE | 2017-05-08 11:24 | PCM.PN ---
- Review of Systems Systems Review Comment:: feeling better, still reports fatigue and shortness of breath, satting 88% on RA - Patient Data Vitals - Most Recent: Last Vital Signs Temp 37.0 C 05/08/17 08:00 Pulse 85 05/08/17 08:00 Resp 16 05/08/17 08:00 BP 157/104 H 05/08/17 08:00 Pulse Ox 96 05/08/17 08:00 Weight - Most Recent: 97.5 kg I&O - Last 24 Hours: Intake & Output 05/07/17 05/08/17 05/08/17 22:59 06:59 14:59 Intake Total 250 500 Output Total 0 Balance 250 500 Lab Results Last 24 Hours: Laboratory Results - last 24 hr 05/08/17 05/08/17 Range/Units 05:38 05:38 WBC 7.90 (4.0-11.0) K/uL RBC 3.24 L (4.50-5.90) M/uL Hgb 11.1 L (13.0-17.0) g/dL Hct 33.3 L (38.0-50.0) % MCV 102.8 H (80.0-98.0) fL MCH 34.3 H (27.0-32.0) pg MCHC 33.3 (31.0-37.0) g/dL RDW Std Deviation 56.1 (28.0-62.0) fl RDW Coeff of Dave 15 (11.0-15.0) % Plt Count 170 (150-400) K/uL MPV 10.50 (7.40-12.00) fL Neut % (Auto) 65.9 (48.0-80.0) % Lymph % (Auto) 17.1 (16.0-40.0) % [place] % (Auto) 14.6 (0.0-15.0) % Eos % (Auto) 1.1 (0.0-7.0) % Baso % (Auto) 1.3 (0.0-1.5) % Neut # (Auto) 5.2 (1.4-5.7) K/uL Lymph # (Auto) 1.4 (0.6-2.4) K/uL [place] # (Auto) 1.2 H (0.0-0.8) K/uL Eos # (Auto) 0.1 (0.0-0.7) K/uL Baso # (Auto) 0.1 (0.0-0.1) K/uL Nucleated RBC % 0.0 /100WBC Nucleated RBCs # 0 K/uL Sodium 138 (136-146) mmol/L Potassium 3.5 (3.5-5.1) mmol/L Chloride 95 L (98-110) mmol/L Carbon Dioxide 24 (21-31) mmol/L BUN 29 H (6.0-23.0) mg/dL Creatinine 6.8 H (0.6-1.5) mg/dL Est Cr Clr Drug Dosing 16.48 mL/min Estimated GFR (MDRD) 9.1 ml/min Glucose 99 (60-110) mg/dL Calcium 10.2 (8.8-10.8) mg/dL Fredy Results Last 24 Hours: Microbiology 05/07/17 19:45 Gram Stain - Preliminary Sputum - Expectorated 05/07/17 19:45 Influenza Type A Antigen Screen - Final Nasopharyngeal Swab - Nare, Left NEGATIVE INFLUENZA A VIRUS AG Influenza Type B Antigen Screen - Final NEGATIVE INFLUENZA B VIRUS AG Med Orders - Current: Current Medications Amlodipine Besylate (Norvasc) 10 mg PO BEDTIME [facility] Last Admin: 05/07/17 23:13 Dose: 10 mg Heparin Sodium (Porcine) (Heparin Sodium) 5,000 units SUBCUT Q12HR [facility] Last Admin: 05/08/17 08:45 Dose: 5,000 units Azithromycin 500 mg/ Sodium (Chloride) 250 mls @ 250 mls/hr IV Q24H [facility] Last Admin: 05/07/17 20:37 Dose: 250 mls/hr Ceftriaxone Sodium/Dextrose 1 (gm/ Premix) 50 mls @ 100 mls/hr IV Q24H [facility] Last Admin: 05/07/17 19:40 Dose: 100 mls/hr Ondansetron HCl (Zofran) 4 mg IVPUSH Q4H PRN PRN Reason: Nausea Last Admin: 05/07/17 21:19 Dose: 4 mg Minoxidil 2.5 Mg (Pt Own) 1 each PO BID [facility] Last Admin: 05/08/17 08:46 Dose: 1 each Sevelamer Carbonate (Renvela) 1,600 mg PO BIDMEALS [facility] Last Admin: 05/08/17 08:45 Dose: 1,600 mg Sodium Chloride (Saline Flush) 2.5 ml FLUSH ASDIRECTED PRN PRN Reason: Keep Vein Open Discontinued Medications Albuterol/Ipratropium (Duoneb 3.0-0.5 Mg/3 Ml) 3 ml NEB ONETIME ONE Stop: 05/07/17 13:29 Last Admin: 05/07/17 13:45 Dose: 3 ml Clonidine HCl (Catapres) 0.1 mg PO ONETIME ONE Stop: 05/08/17 02:14 Last Admin: 05/08/17 02:26 Dose: 0.1 mg Azithromycin 500 mg/ Sodium (Chloride) 250 mls @ 250 mls/hr IV Q24H [facility] Minoxidil 2.5 Mg (Pt Own) 2.5 mg PO BID [facility] Last Admin: 05/07/17 23:14 Dose: 2.5 mg Sevelamer Carbonate (Renvela) 1,600 mg PO BID [facility] Last Admin: 05/07/17 23:17 Dose: Not Given - Exam HEENT: Mucous Membr. Moist/[place] Lungs: Normal Respiratory Effort. No: Crackles, Rhonchi, Wheezing GI/Abdominal Exam: Soft, Non-Tender, No Distention Extremities: No Pedal Edema Skin: Warm, Dry, Intact - Problem List Review Problem List Initiated/Reviewed/Updated: Yes - My Orders Last 24 Hours: My Active Orders 05/09/17 05:11 BASIC METABOLIC PANEL,BMP [CHEM] AM CBC WITH AUTO DIFF [HEME] AM 05/10/17 05:11 BASIC METABOLIC PANEL,BMP [CHEM] AM CBC WITH AUTO DIFF [HEME] AM 05/07/17 18:00 Azithromycin [Zithromax] 500 mg Sodium Chloride 0.9% [Normal Saline] 250 ml IV Q24H cefTRIAXone [Rocephin in Dextrose,Iso-Osm 1 GM/50 ML] 1 gm Premix Bag 1 bag IV Q24H 05/07/17 18:41 Oxygen Therapy [RC] PRN Up ad Sanjuana [RC] ASDIRECTED Vital Signs [RC] Q4H Ondansetron [Zofran] 4 mg IVPUSH Q4H PRN Sequential Compression Device [OM.PC] Per Unit Routine Resuscitation Status Routine 05/07/17 18:42 Antiembolic Devices [RC] PER UNIT ROUTINE 05/07/17 19:45 CULTURE SPUTUM + SMEAR [RM] Routine 05/07/17 21:00 Heparin Sodium 5,000 units SUBCUT Q12HR amLODIPine [Norvasc] 10 mg PO BEDTIME 05/08/17 08:00 Sevelamer Carbonate [Renvela] 1,600 mg PO BIDMEALS 05/08/17 09:00 Patient's Own Medication [Ptom] 1 each PO BID 05/08/17 Breakfast Renal Dialysis Diet [DIET] - Plan Plan:: 41 yo male with pmh of ESRD admitted for pneumonia. We will continue Rocephin and azithromycin. I anticipate patient will be ready for discharge tomorrow.
[2017-05-08] MEDS: Azithromycin 500 MG in Sodium Chloride 0.9% 250 ML IV SCH (17:17)
[2017-05-08] MEDS ORDERED: cefTRIAXone 1 GM in Premix Bag 1 BAG IV SCH (19:00)
[2017-05-08] MEDS: amLODIPine 5 MG Tab PO SCH (21:08)
[2017-05-08] MEDS ORDERED: Albuterol/Ipratropium 3.0-0.5 MG/3 ML Neb Soln NEB PRN (21:38)
[2017-05-09] MEDS: Sevelamer Carbonate 800 MG Tab PO SCH (07:13)
[2017-05-09] MEDS: Heparin Sodium 5,000 Units/ML Vial SUBCUT SCH (08:42)
[2017-05-09] MEDS: MINOXIDIL 2.5 MG PO SCH (08:42)
[2017-05-09 11:37] VITALS: BP 187/107
--- NOTE | 2017-05-09 13:21 | PCM.DCSUM1 ---
Discharge Summary - Discharge Data Discharge Date: 05/09/17 Discharge Disposition: Home, Self-Care 01 Condition: Good - Patient Summary/Data Hospital Course: 41 yo male with pmh of HTN and ESRD with dialysis Binu Weaver Sat, who presented following dialysis with complaint of shortness of breath, productive cough, fevers, and myalgias. CXR showed mild left basilar infiltrate. He was admitted for pneumonia and treated with Rocephin and azithromycin. Sputum cultures grew out normal respiratory demarco. On third hospital day patient was feeling better, satting 94% on RA and requesting discharge. He was discharged on oral Azithromycin. - Patient Instructions Diet: Renal Diet Activity: As Tolerated - Discharge Plan Prescriptions/Med Rec: Azithromycin [Zithromax] 250 mg PO DAILY #6 tablet Home Medications: Home Meds amLODIPine [Norvasc] 10 mg PO BEDTIME 10/02/16 [History] Minoxidil 2.5 mg PO BID 05/07/17 [History] Sevelamer HCl [Renagel] 1,600 mg PO BID 05/07/17 [History] Azithromycin [Zithromax] 250 mg PO DAILY #6 tablet 05/09/17 [Rx] Referrals: PCP,Unknown [Ordering Only Provider] - - Patient Data Vitals - Most Recent: Last Vital Signs Temp 36.6 C 05/09/17 11:36 Pulse 97 05/09/17 11:36 Resp 18 05/09/17 11:36 BP 187/107 H 05/09/17 11:36 Pulse Ox 90 L 05/09/17 11:36 Weight - Most Recent: 97.5 kg I&O - Last 24 hours: Intake & Output 05/08/17 05/09/17 05/09/17 22:59 06:59 14:59 Intake Total 800 350 Output Total 0 Balance 800 350 Lab Results - Last 24 hrs: Laboratory Results - last 24 hr 05/09/17 05/09/17 Range/Units 07:25 07:25 WBC 7.52 (4.0-11.0) K/uL RBC 3.19 L (4.50-5.90) M/uL Hgb 11.0 L (13.0-17.0) g/dL Hct 32.6 L (38.0-50.0) % MCV 102.2 H (80.0-98.0) fL MCH 34.5 H (27.0-32.0) pg MCHC 33.7 (31.0-37.0) g/dL RDW Std Deviation 55.3 (28.0-62.0) fl RDW Coeff of Dave 15 (11.0-15.0) % Plt Count 170 (150-400) K/uL MPV 10.30 (7.40-12.00) fL Neut % (Auto) 56.3 (48.0-80.0) % Lymph % (Auto) 26.1 (16.0-40.0) % [place] % (Auto) 11.8 (0.0-15.0) % Eos % (Auto) 4.9 (0.0-7.0) % Baso % (Auto) 0.9 (0.0-1.5) % Neut # (Auto) 4.2 (1.4-5.7) K/uL Lymph # (Auto) 2.0 (0.6-2.4) K/uL [place] # (Auto) 0.9 H (0.0-0.8) K/uL Eos # (Auto) 0.4 (0.0-0.7) K/uL Baso # (Auto) 0.1 (0.0-0.1) K/uL Nucleated RBC % 0.0 /100WBC Nucleated RBCs # 0 K/uL Sodium 139 (136-146) mmol/L Potassium 3.6 (3.5-5.1) mmol/L Chloride 94 L (98-110) mmol/L Carbon Dioxide 26 (21-31) mmol/L BUN 47 H (6.0-23.0) mg/dL Creatinine 9.7 H (0.6-1.5) mg/dL Est Cr Clr Drug Dosing 11.55 mL/min Estimated GFR (MDRD) 6.0 ml/min Glucose 114 H (60-110) mg/dL Calcium 10.4 (8.8-10.8) mg/dL IVON Results - Last 24 hrs: Microbiology 05/07/17 19:45 Gram Stain - Preliminary Sputum - Expectorated Sputum Culture - Final Normal Respiratory Demarco Med Orders - Current: Current Medications Albuterol/Ipratropium (Duoneb 3.0-0.5 Mg/3 Ml) 3 ml NEB Q4HRRT PRN PRN Reason: Wheezing Amlodipine Besylate (Norvasc) 10 mg PO BEDTIME [facility] Last Admin: 05/08/17 21:08 Dose: 10 mg Heparin Sodium (Porcine) (Heparin Sodium) 5,000 units SUBCUT Q12HR [facility] Last Admin: 05/09/17 08:42 Dose: 5,000 units Azithromycin 500 mg/ Sodium (Chloride) 250 mls @ 250 mls/hr IV Q24H [facility] Last Admin: 05/08/17 17:17 Dose: 250 mls/hr Ceftriaxone Sodium/Dextrose 1 (gm/ Premix) 50 mls @ 100 mls/hr IV Q24H [facility] Last Admin: 05/08/17 18:30 Dose: 100 mls/hr Ondansetron HCl (Zofran) 4 mg IVPUSH Q4H PRN PRN Reason: Nausea Last Admin: 05/07/17 21:19 Dose: 4 mg Minoxidil 2.5 Mg (Pt Own) 1 each PO BID [facility] Last Admin: 05/09/17 08:42 Dose: 1 each Sevelamer Carbonate (Renvela) 1,600 mg PO BIDMEALS [facility] Last Admin: 05/09/17 07:13 Dose: 1,600 mg Sodium Chloride (Saline Flush) 2.5 ml FLUSH ASDIRECTED PRN PRN Reason: Keep Vein Open Discontinued Medications Albuterol/Ipratropium (Duoneb 3.0-0.5 Mg/3 Ml) 3 ml NEB ONETIME ONE Stop: 05/07/17 13:29 Last Admin: 05/07/17 13:45 Dose: 3 ml Clonidine HCl (Catapres) 0.1 mg PO ONETIME ONE Stop: 05/08/17 02:14 Last Admin: 05/08/17 02:26 Dose: 0.1 mg Azithromycin 500 mg/ Sodium (Chloride) 250 mls @ 250 mls/hr IV Q24H [facility] Ceftriaxone Sodium/Dextrose 1 (gm/ Premix) 50 mls @ 100 mls/hr IV Q24H [facility] Last Admin: 05/07/17 19:40 Dose: 100 mls/hr Minoxidil 2.5 Mg (Pt Own) 2.5 mg PO BID [facility] Last Admin: 05/07/17 23:14 Dose: 2.5 mg Sevelamer Carbonate (Renvela) 1,600 mg PO BID [facility] Last Admin: 05/07/17 23:17 Dose: Not Given *Q Meaningful Use (DIS) - VTE *Q VTE Criteria *Q: - Stroke *Q Stroke Criteria *Q: - AMI *Q AMI Criteria *Q:
[2017-05-09] MEDS ORDERED: Azithromycin 250 MG Tab PO SCH ×2 (15:00→15:45)
--- NOTE | 2017-05-10 18:25 | CR ---
EXAM DATE: 05/07/17 PATIENT'S AGE: 41 Patient: DUC MORALES Facility: [place], [place] Site . Site : 1975 Study: XRay Chest [id number]/30/2017 2:31:58 PM Ordering Physician: Doctor Clement Final Report: Shortness breath two-view chest x-ray. Comparison: Chest x-ray 11/24/2016 Findings: Low lung volumes. Cardiac mediastinal silhouette is stable. Indistinctness of the left hemidiaphragm could be related to subtle infiltrate and possible effusion. Probable chronic areas of atelectasis or scarring. Dictated by Shyann Ruff MD @ May 07 2017 3:01PM (Electronic Signature) Report Signed by Proxy. [id number]
== END 2017-05-09 14:50 | disposition home or self-care (01) ==
LOC: MW.ED 13:09 → MW.MS 16:18
PROVIDERS: ADMIT Internal Medicine; ATTEND Internal Medicine
DX: J18.9 Pneumonia, unspecified organism (principal); I12.0 Hypertensive chronic kidney disease with stage 5 chronic kidney disease or end stage renal disease; N18.6 End stage renal disease; Z99.2 Dependence on renal dialysis; Z87.891 Personal history of nicotine dependence; Z79.899 Other long term (current) drug therapy; Z83.3 Family history of diabetes mellitus; Z81.8 Family history of other mental and behavioral disorders; Z90.49 Acquired absence of other specified parts of digestive tract; Z98.890 Other specified postprocedural states
CPT/HCPCS: 36415; 71020; 80048; 80053; 83605; 85025; 87040; 87070; 87205; 87804; 94640; 99285; A9270; J0456; J0696; J1644; J2405; J7050; 96365; 96366; 96367; 96372; 96375; 96376; 99284; G0378

== ENCOUNTER 2017-06-07 00:18 | Emergency (ER) | payer SELFPAY ==
[2017-06-07] MEDS ORDERED: Albuterol/Ipratropium 3.0-0.5 MG/3 ML Neb Soln ONE (00:19)
[2017-06-07] MEDS ORDERED: methylPREDNISolone Sodium Succinate 125 MG/2 ML SDV ONE (00:22)
--- NOTE | 2017-06-07 00:26 | EDM.PDOC ---
ED HPI GENERAL MEDICAL PROBLEM - General Stated Complaint: HARD TIME BREATHING Time Seen by Provider: 06/07/17 00:22 - History of Present Illness INITIAL COMMENTS - FREE TEXT/NARRATIVE: HISTORY AND PHYSICAL: History of present illness: Patient 41-year-old white male history of cardiac disease as well as chronic renal failure for which he is dialyzed Tuesday and was last dialyzed last Tuesday presents with a concern of severe shortness of breath upon arrival is in severe distress with wheezing and diminished breath sounds bilaterally and distributed status to secondhand smoke he denies chest pain nausea vomiting or other complaints Review of systems: As per history of present illness and below otherwise all systems reviewed and negative. Past medical history: As per history of present illness and as reviewed below otherwise noncontributory. Surgical history: As per history of present illness and as reviewed below otherwise noncontributory. Social history: No reported history of drug or alcohol abuse. Family history: As per history of present illness and as reviewed below otherwise noncontributory. Physical exam: HEENT: Atraumatic, normocephalic, pupils reactive, negative for conjunctival pallor or scleral icterus, mucous membranes moist, throat clear, neck supple, nontender, trachea midline. Lungs: Markedly diminished scattered and expiratory wheezing, breath sounds equal bilaterally, chest nontender. Heart: S1S2, regular, negative for clicks, rubs, or JVD. Abdomen: Soft, nondistended, nontender. Negative for masses or hepatosplenomegaly. Negative for costovertebral tenderness. Pelvis: Stable nontender. Genitourinary: Deferred. Rectal: Deferred. Extremities: Atraumatic, negative for cords or calf pain. Neurovascular unremarkable. Fistula noted left upper extremity Neuro: Awake, alert, oriented. Cranial nerves II through XII unremarkable. Cerebellum unremarkable. Motor and sensory unremarkable throughout. Exam nonfocal. Diagnostics: CBC CMP BNP PT/INR troponin chest x-ray EKG Therapeutics: IV O2 monitor albuterol ipratropium nebulizer Solu-Medrol 125 mg IV Impression: # 1 dyspnea #2 chronic renal failure Definitive disposition and diagnosis as appropriate pending reevaluation and review of above. - Related Data Allergies Allergy/AdvReac Type Severity Reaction Status Date / Time No Known Allergies Allergy Verified 05/07/17 13:33 Home Meds: Home Meds amLODIPine [Norvasc] 10 mg PO BEDTIME 10/02/16 [History] Minoxidil 2.5 mg PO BID 05/07/17 [History] Sevelamer HCl [Renagel] 1,600 mg PO BID 05/07/17 [History] Past Medical History HEENT History: Reports: Impaired Vision Cardiovascular History: Reports: Hypertension Respiratory History: Reports: Pneumonia, Recurrent Gastrointestinal History: Reports: None Genitourinary History: Reports: Chronic Renal Insuffiency, Dialysis Other Genitourinary History: on hemodialysis; fistula on left arm Musculoskeletal History: Reports: Fracture Neurological History: Reports: None Psychiatric History: Reports: None Endocrine/Metabolic History: Reports: None Hematologic History: Reports: None Immunologic History: Reports: None Oncologic (Cancer) History: Reports: None Dermatologic History: Reports: None - Infectious Disease History Infectious Disease History: Reports: Chicken Pox - Past Surgical History Head Surgeries/Procedures: Reports: None GI Surgical History: Reports: Appendectomy, Colonoscopy Social & Family History - Family History Family Medical History: Noncontributory Neurological: Reports: Alzheimers Disease, Dementia Endocrine/Metabolic: Reports: Diabetes, type II Oncologic: Reports: Leukemia - Tobacco Use Smoking Status *Q: Former Smoker Years of Tobacco use: 20 Packs/Tins Daily: 1 Used Tobacco, but Quit: Yes Month Tobacco Last Used: April 2017 Second Hand Smoke Exposure: No - Caffeine Use Caffeine Use: Reports: Coffee Caffeine Use Comment: 1 cup coffee per day - Alcohol Use Days Per Week of Alcohol Use: 2 Number of Drinks Per Day: 3 Total Drinks Per Week: 6 - Recreational Drug Use Recreational Drug Use: No ED ROS GENERAL - Review of Systems Review Of Systems: ROS reveals no pertinent complaints other than HPI. ED EXAM, GENERAL - Physical Exam Exam: See Below (See dictation) Course - Vital Signs Last Recorded V/S: Last Vital Signs Temp 36.8 C 06/07/17 01:47 Pulse 91 06/07/17 01:47 Resp 22 H 06/07/17 01:47 BP 174/105 H 06/07/17 01:47 Pulse Ox 95 06/07/17 01:47 - Orders/Labs/Meds Orders: Active Orders 24 hr Category Date Time Status Cardiac Monitoring [RC] . DIRECTED Care 06/07/17 00:25 Active EKG Documentation Completion [RC] STAT Care 06/07/17 00:25 Active RT Aerosol Therapy [RC] ASDIRECTED Care 06/07/17 00:28 Active RT Aerosol Therapy [RC] ASDIRECTED Care 06/07/17 00:42 Active Chest 1V Frontal [CR] Stat Exams 06/07/17 00:25 Taken UA W/MICROSCOPIC [URIN] Stat Lab 06/07/17 00:25 Uncollected Labs: Laboratory Tests 06/07/17 06/07/17 06/07/17 Range/Units 00:24 00:27 00:27 WBC 17.27 H (4.0-11.0) K/uL RBC 3.48 L (4.50-5.90) M/uL Hgb 12.3 L (13.0-17.0) g/dL Hct 36.3 L (38.0-50.0) % MCV 104.3 H (80.0-98.0) fL MCH 35.3 H (27.0-32.0) pg MCHC 33.9 (31.0-37.0) g/dL RDW Std Deviation 57.8 (28.0-62.0) fl RDW Coeff of Dave 15 (11.0-15.0) % Plt Count 210 (150-400) K/uL MPV 10.40 (7.40-12.00) fL Neut % (Auto) 73.9 (48.0-80.0) % Lymph % (Auto) 14.2 L (16.0-40.0) % Howell % (Auto) 8.0 (0.0-15.0) % Eos % (Auto) 3.3 (0.0-7.0) % Baso % (Auto) 0.6 (0.0-1.5) % Neut # (Auto) 12.8 H (1.4-5.7) K/uL Lymph # (Auto) 2.5 H (0.6-2.4) K/uL Howell # (Auto) 1.4 H (0.0-0.8) K/uL Eos # (Auto) 0.6 (0.0-0.7) K/uL Baso # (Auto) 0.1 (0.0-0.1) K/uL Nucleated RBC % 0.0 /100WBC Nucleated RBCs # 0 K/uL INR 1.09 D-Dimer, Quantitative 0.99 H (0.0-0.52) mg/LFEU ABG pH (7.35-7.45) ABG pCO2 (35-45) mmHG ABG pO2 (75-100) mmHG ABG HCO3 (22-26) mEq/L ABG Total CO2 ABG Base Excess (-2.0-2.0) Sodium (136-146) mmol/L Potassium (3.5-5.1) mmol/L Chloride (98-110) mmol/L Carbon Dioxide (21-31) mmol/L BUN (6.0-23.0) mg/dL Creatinine (0.6-1.5) mg/dL Est Cr Clr Drug Dosing mL/min Estimated GFR (MDRD) ml/min Glucose (60-110) mg/dL Calcium (8.8-10.8) mg/dL Total Bilirubin (0.1-1.5) mg/dL AST (5-40) IU/L ALT (8-54) IU/L Alkaline Phosphatase (40-150) CK-MB (CK-2) (0-6.6) ng/ml Troponin I (0.0-0.29) NG/ML B-Natriuretic Peptide 968 H (<100) PG/ML Total Protein (6.0-8.0) g/dL Albumin (3.5-5.0) g/dL Globulin (2.0-3.5) g/dL Albumin/Globulin Ratio (1.3-2.8) 06/07/17 06/07/17 06/07/17 Range/Units 00:27 00:27 01:20 WBC (4.0-11.0) K/uL RBC (4.50-5.90) M/uL Hgb (13.0-17.0) g/dL Hct (38.0-50.0) % MCV (80.0-98.0) fL MCH (27.0-32.0) pg MCHC (31.0-37.0) g/dL RDW Std Deviation (28.0-62.0) fl RDW Coeff of Dave (11.0-15.0) % Plt Count (150-400) K/uL MPV (7.40-12.00) fL Neut % (Auto) (48.0-80.0) % Lymph % (Auto) (16.0-40.0) % Howell % (Auto) (0.0-15.0) % Eos % (Auto) (0.0-7.0) % Baso % (Auto) (0.0-1.5) % Neut # (Auto) (1.4-5.7) K/uL Lymph # (Auto) (0.6-2.4) K/uL Howell # (Auto) (0.0-0.8) K/uL Eos # (Auto) (0.0-0.7) K/uL Baso # (Auto) (0.0-0.1) K/uL Nucleated RBC % /100WBC Nucleated RBCs # K/uL INR D-Dimer, Quantitative (0.0-0.52) mg/LFEU ABG pH 7.387 (7.35-7.45) ABG pCO2 37 (35-45) mmHG ABG pO2 68 L (75-100) mmHG ABG HCO3 22 (22-26) mEq/L ABG Total CO2 20.9 ABG Base Excess -2.2 L (-2.0-2.0) Sodium 139 (136-146) mmol/L Potassium 5.3 H (3.5-5.1) mmol/L Chloride 96 L (98-110) mmol/L Carbon Dioxide 20 L (21-31) mmol/L BUN 65 H (6.0-23.0) mg/dL Creatinine 10.2 H (0.6-1.5) mg/dL Est Cr Clr Drug Dosing 10.99 mL/min Estimated GFR (MDRD) 5.7 ml/min Glucose 115 H (60-110) mg/dL Calcium 11.3 H (8.8-10.8) mg/dL Total Bilirubin 1.1 (0.1-1.5) mg/dL AST 21 (5-40) IU/L ALT 16 (8-54) IU/L Alkaline Phosphatase 75 (40-150) CK-MB (CK-2) 10.7 H (0-6.6) ng/ml Troponin I 0.31 H* (0.0-0.29) NG/ML B-Natriuretic Peptide (<100) PG/ML Total Protein 9.3 H (6.0-8.0) g/dL Albumin 5.2 H (3.5-5.0) g/dL Globulin 4.1 H (2.0-3.5) g/dL Albumin/Globulin Ratio 1.3 (1.3-2.8) Meds: Medications Discontinued Medications Generic Name Dose Route Start Last Admin Trade Name Freq PRN Reason Stop Dose Admin Albuterol/Ipratropium 3 ml 06/07/17 00:28 06/07/17 00:29 Duoneb 3.0-0.5 Mg/3 Ml NEB 06/07/17 00:29 3 ml ONETIME ONE Administration Albuterol/Ipratropium 3 ml 06/07/17 00:42 06/07/17 00:46 Duoneb 3.0-0.5 Mg/3 Ml NEB 06/07/17 00:43 3 ml ONETIME ONE Administration Methylprednisolone Sodium Succinate Confirm 06/07/17 00:22 06/07/17 00:31 Solu-Medrol Administered 06/07/17 00:23 Not Given Dose 125 mg .ROUTE .STK-MED ONE Methylprednisolone Sodium Succinate 125 mg 06/07/17 00:28 06/07/17 00:30 Solu-Medrol IVPUSH 06/07/17 00:29 125 mg ONETIME ONE Administration Departure - Departure Time of Disposition: 01:55 Disposition: DC/Tfer to Acute Hospital 02 Clinical Impression: Dyspnea, Renal failure, Hypoxemia - Discharge Information - My Orders Last 24 Hours: My Active Orders 06/07/17 00:25 Cardiac Monitoring [RC] . DIRECTED EKG Documentation Completion [RC] STAT Chest 1V Frontal [CR] Stat UA W/MICROSCOPIC [URIN] Stat 06/07/17 00:28 RT Aerosol Therapy [RC] ASDIRECTED 06/07/17 00:42 RT Aerosol Therapy [RC] ASDIRECTED - Assessment/Plan Last 24 Hours: My Active Orders 06/07/17 00:25 Cardiac Monitoring [RC] . DIRECTED EKG Documentation Completion [RC] STAT Chest 1V Frontal [CR] Stat UA W/MICROSCOPIC [URIN] Stat 06/07/17 00:28 RT Aerosol Therapy [RC] ASDIRECTED 06/07/17 00:42 RT Aerosol Therapy [RC] ASDIRECTED
[2017-06-07] MEDS ORDERED: methylPREDNISolone Sodium Succinate 125 MG/2 ML SDV IVPUSH ONE (00:28)
[2017-06-07] MEDS ORDERED: Albuterol/Ipratropium 3.0-0.5 MG/3 ML Neb Soln NEB ONE ×2 (00:28→00:42)
[2017-06-07 03:05] VITALS: BP 154/98
--- NOTE | 2017-06-07 11:22 | CR ---
EXAM DATE: 06/07/17 PATIENT'S AGE: 41 Patient: DUC MORALES Facility: [place], [place] Site . Site : 1975 Study: XRay Chest [id number]/30/2018 12:43:22 AM Ordering Physician: Obdulia Kumar Final Report: INDICATION: Shortness of breath. COMPARISON: 05/07/2017 chest radiographs. FINDINGS/IMPRESSION: No significant change, allowing for differences in technique, in elevation of the left diaphragm with bibasilar stranding likely representing chronic scarring or atelectasis. No definite acute infiltrates. Stable upper normal heart size. No definite pleural effusions. Grossly unchanged vascular stent projected over the superior mediastinum, not well visualized on the current exam. Unremarkable bony structures. Dictated by Jeovanny Mckeon MD @ 06/07/2017 12:56:18 AM Dictated by: Jeovanny Mckeon MD @ 06/07/2017 00:58:43 (Electronic Signature) Report Signed by Proxy. JIMMIE
== END 2017-06-07 03:02 ==
LOC: MW.ED 00:18
DX: R06.00 Dyspnea, unspecified (principal); I12.9 Hypertensive chronic kidney disease with stage 1 through stage 4 chronic kidney disease, or unspecified chronic kidney disease; N18.9 Chronic kidney disease, unspecified; R09.02 Hypoxemia
CPT/HCPCS: 36415; 36600; 71045; 80053; 82553; 82803; 83880; 84484; 85025; 85379; 85610; 87804; 93005; 96374; 99285; J2930; 99284

== ENCOUNTER 2017-10-31 17:26 | Emergency (ER) | payer MEDICARE, MEDICAID ==
[2017-10-31] MEDS ORDERED: Albuterol/Ipratropium 3.0-0.5 MG/3 ML Neb Soln NEB ONE (17:37)
[2017-10-31] MEDS ORDERED: Sodium Chloride 0.9% 2.5 ML Syringe FLUSH PRN (17:37)
[2017-10-31] MEDS ORDERED: Sodium Chloride 0.9% 10 ML Syringe FLUSH PRN (17:37)
[2017-10-31] MEDS ORDERED: Ondansetron 4 MG/2 ML SDV IVPUSH ONE (17:37)
[2017-10-31] MEDS ORDERED: Labetalol 20 MG/4 ML Syringe IVPUSH ONE ×2 (17:39→18:58)
--- NOTE | 2017-10-31 17:45 | EDM.PDOC ---
ED HPI GENERAL MEDICAL PROBLEM - General Chief Complaint: Gastrointestinal Problem Stated Complaint: VOMITING Time Seen by Provider: 10/31/17 17:28 Source of Information: Reports: Patient History Limitations: Reports: No Limitations - History of Present Illness INITIAL COMMENTS - FREE TEXT/NARRATIVE: History of present illness: []Patient's had dizziness all day described as spinning and has had episodes of passing out waking up on the carpet. He states he did this several times today, and says he was never out more than 5 minutes as he was sitting on couch watching TV. Patient was in [facility] last week for evaluation to be on a kidney transplant list but ended up being admitted to [facility] for shortness of breath and diagnosed with bronchitis and an elevated troponin. He was discharged 2 days ago. He is currently taking Zithromax and a steroid taper. Patient is a 4 year dialysis patient and his last dialysis was 2 days ago. His next dialysis is scheduled tomorrow. Patient denies headache, change in vision , fevers, abdominal pain, diarrhea. Review of systems: As per history of present illness and below otherwise all systems reviewed and negative. Past medical history: As per history of present illness and as reviewed below otherwise noncontributory. Surgical history: As per history of present illness and as reviewed below otherwise noncontributory. Social history: No reported history of drug or alcohol abuse. Family history: As per history of present illness and as reviewed below otherwise noncontributory. Physical exam: General: Well developed, well nourished in NAD HEENT: Atraumatic, normocephalic, pupils reactive, negative for conjunctival pallor or scleral icterus, mucous membranes moist, throat clear, neck supple, nontender, trachea midline. Lungs: Rhonchi noted in the right more than left no respiratory distress or accessory muscle use Heart: S1S2, regular, negative for clicks, rubs, or JVD. Abdomen: Soft, nondistended, nontender. Negative for masses or hepatosplenomegaly. Negative for costovertebral tenderness. Pelvis: Stable nontender. Genitourinary: Deferred. Rectal: Deferred. Extremities: Atraumatic, negative for cords or calf pain. Neurovascular unremarkable. Neuro: Awake, alert, oriented. Cranial nerves II through XII unremarkable. Cerebellum unremarkable. Motor and sensory unremarkable throughout. Exam nonfocal. Diagnostics: []EKG shows sinus tachycardia 101 with peak T waves Therapeutics: []Labetalol, calcium chloride, insulin, glucose, sodium bicarbonate was given to the patient Impression: []Renal failure with hyperkalemia, uncontrolled hypertension and syncopal episodes Plan: []Transfer to [facility] Dr. Paulino accepts Definitive disposition and diagnosis as appropriate pending reevaluation and review of above. - Related Data Allergies Allergy/AdvReac Type Severity Reaction Status Date / Time No Known Allergies Allergy Verified 05/07/17 13:33 Home Meds: Home Meds amLODIPine [Norvasc] 10 mg PO BEDTIME 10/02/16 [History] Minoxidil 2.5 mg PO BID 05/07/17 [History] Sevelamer HCl [Renagel] 1,600 mg PO BID 05/07/17 [History] Cinacalcet [Sensipar] 30 mg 10/31/17 [History] Orphenadrine [Norflex] 10/31/17 [History] Sertraline [Zoloft] 50 mg PO DAILY 10/31/17 [History] predniSONE 10/31/17 [History] Past Medical History - Past Health History Medical/Surgical History: Denies Medical/Surgical History HEENT History: Reports: Impaired Vision Cardiovascular History: Reports: Hypertension Respiratory History: Reports: Pneumonia, Recurrent Gastrointestinal History: Reports: None Genitourinary History: Reports: Chronic Renal Insuffiency, Dialysis Other Genitourinary History: on hemodialysis; fistula on left arm Musculoskeletal History: Reports: Fracture Neurological History: Reports: None Psychiatric History: Reports: None Endocrine/Metabolic History: Reports: None Hematologic History: Reports: None Immunologic History: Reports: None Oncologic (Cancer) History: Reports: None Dermatologic History: Reports: None - Infectious Disease History Infectious Disease History: Reports: Chicken Pox - Past Surgical History Head Surgeries/Procedures: Reports: None GI Surgical History: Reports: Appendectomy, Colonoscopy Social & Family History - Family History Family Medical History: Noncontributory Neurological: Reports: Alzheimers Disease, Dementia Endocrine/Metabolic: Reports: Diabetes, type II Oncologic: Reports: Leukemia - Caffeine Use Caffeine Use: Reports: Coffee Caffeine Use Comment: 1 cup coffee per day ED ROS GENERAL - Review of Systems Review Of Systems: See Below (See history of present illness) ED EXAM, GENERAL - Physical Exam Exam: See Below (See history of present illness) Course - Vital Signs Last Recorded V/S: Last Vital Signs Temp 97.8 F 10/31/17 17:37 Pulse 98 10/31/17 18:08 Resp 18 10/31/17 17:37 BP 199/115 H 10/31/17 19:17 Pulse Ox 95 10/31/17 17:37 - Orders/Labs/Meds Orders: Active Orders 24 hr Category Date Time Status EKG Documentation Completion [RC] STAT Care 10/31/17 17:36 Active RT Aerosol Therapy [RC] ASDIRECTED Care 10/31/17 17:37 Active Chest 1V Frontal [CR] Stat Exams 10/31/17 17:37 Taken Head wo Cont [CT] Stat Exams 10/31/17 17:45 Taken Saline Lock Insert [OM.PC] Stat Oth 10/31/17 17:36 Ordered Labs: Laboratory Tests 10/31/17 10/31/17 10/31/17 Range/Units 17:42 17:42 17:42 WBC 9.44 (4.0-11.0) K/uL RBC 3.12 L (4.50-5.90) M/uL Hgb 11.1 L (13.0-17.0) g/dL Hct 32.8 L (38.0-50.0) % MCV 105.1 H (80.0-98.0) fL MCH 35.6 H (27.0-32.0) pg MCHC 33.8 (31.0-37.0) g/dL RDW Std Deviation 59.0 (28.0-62.0) fl RDW Coeff of Dave 15 (11.0-15.0) % Plt Count 203 (150-400) K/uL MPV 10.50 (7.40-12.00) fL Neut % (Auto) 92.3 H (48.0-80.0) % Lymph % (Auto) 3.2 L (16.0-40.0) % Citrus % (Auto) 4.3 (0.0-15.0) % Eos % (Auto) 0.0 (0.0-7.0) % Baso % (Auto) 0.2 (0.0-1.5) % Neut # (Auto) 8.7 H (1.4-5.7) K/uL Lymph # (Auto) 0.3 L (0.6-2.4) K/uL Citrus # (Auto) 0.4 (0.0-0.8) K/uL Eos # (Auto) 0.0 (0.0-0.7) K/uL Baso # (Auto) 0.0 (0.0-0.1) K/uL Nucleated RBC % 0.0 /100WBC Nucleated RBCs # 0 K/uL Sodium 134 L (136-148) mmol/L Potassium 6.0 H (3.5-5.1) mmol/L Chloride 94 L (98-107) mmol/L Carbon Dioxide 21.8 (21.0-32.0) mmol/L BUN 93 H (7.0-18.0) mg/dL Creatinine 12.5 H (0.8-1.3) mg/dL Est Cr Clr Drug Dosing TNP Estimated GFR (MDRD) 4.5 ml/min Glucose 233 H (74-106) mg/dL Calcium 9.9 (8.5-10.1) mg/dL Total Bilirubin 0.6 (0.2-1.0) mg/dL AST 16 (15-37) IU/L ALT 23 (14-63) IU/L Alkaline Phosphatase 63 (46-116) U/L Creatine Kinase 103 (26-308) U/L Total Protein 7.9 (6.4-8.2) g/dL Albumin 4.1 (3.4-5.0) g/dL Globulin 3.8 H (2.0-3.5) g/dL Albumin/Globulin Ratio 1.1 L (1.3-2.8) Meds: Medications Discontinued Medications Generic Name Dose Route Start Last Admin Trade Name Freq PRN Reason Stop Dose Admin Albuterol/Ipratropium 3 ml 10/31/17 17:37 10/31/17 17:51 Duoneb 3.0-0.5 Mg/3 Ml NEB 10/31/17 17:38 3 ml ONETIME ONE Administration Amlodipine Besylate 10 mg 10/31/17 18:58 10/31/17 19:17 Norvasc PO 10/31/17 18:59 10 mg ONETIME ONE Administration Calcium Chloride 1 gm 10/31/17 18:47 10/31/17 19:17 Calcium Chloride 10% IVPUSH 10/31/17 18:48 1 gm ONETIME ONE Administration Dextrose/Water 50 ml 10/31/17 18:48 10/31/17 19:09 Dextrose 50% In Water IVPUSH 10/31/17 18:49 50 ml ONETIME ONE Administration Insulin Human Regular 10 unit 10/31/17 18:48 10/31/17 19:06 Novolin R IVPUSH 10/31/17 18:49 10 units ONETIME ONE Administration Protocol Labetalol HCl 20 mg 10/31/17 17:39 10/31/17 17:52 Normodyne IVPUSH 10/31/17 17:40 20 mg NOW ONE Administration Protocol Labetalol HCl 20 mg 10/31/17 18:58 10/31/17 19:33 Normodyne IVPUSH 10/31/17 18:59 Not Given NOW ONE Protocol Ondansetron HCl 4 mg 10/31/17 17:37 10/31/17 17:56 Zofran IVPUSH 10/31/17 17:38 4 mg ONETIME ONE Administration Sodium Bicarbonate 50 meq 10/31/17 18:51 10/31/17 19:12 Sodium Bicarbonate 8.4% IVPUSH 10/31/17 18:52 50 meq ONETIME ONE Administration Sodium Chloride 10 ml 10/31/17 17:37 10/31/17 17:55 Saline Flush FLUSH 10 ml ASDIRECTED PRN Administration Keep Vein Open Sodium Chloride 2.5 ml 10/31/17 17:37 10/31/17 17:56 Saline Flush FLUSH 2.5 ml ASDIRECTED PRN Administration Keep Vein Open - Re-Assessments/Exams Free Text/Narrative Re-Assessment/Exam: Patient's creatinine is 12.3 with his uncontrolled hypertension, syncopal episodes in transferring him is warranted to a facility for admission with dialysis capability. Dr[facility] Paulino [facility] accepts him these being flown out. 10/31/17 18:53 Departure - Departure Time of Disposition: 18:55 Disposition: DC/Tfer to Acute Hospital 02 Condition: Fair Clinical Impression: Renal failure Qualifiers: Renal failure chronicity: chronic Chronic kidney disease stage: on chronic dialysis Qualified Code(s): N18.6 - End stage renal disease - Discharge Information Referrals: PCP,Unknown [Primary Care Provider] - Forms: ED Department Discharge - My Orders Last 24 Hours: My Active Orders 10/31/17 17:36 EKG Documentation Completion [RC] STAT Saline Lock Insert [OM.PC] Stat 10/31/17 17:37 RT Aerosol Therapy [RC] ASDIRECTED Chest 1V Frontal [CR] Stat 10/31/17 17:45 Head wo Cont [CT] Stat - Assessment/Plan Last 24 Hours: My Active Orders 10/31/17 17:36 EKG Documentation Completion [RC] STAT Saline Lock Insert [OM.PC] Stat 10/31/17 17:37 RT Aerosol Therapy [RC] ASDIRECTED Chest 1V Frontal [CR] Stat 10/31/17 17:45 Head wo Cont [CT] Stat
[2017-10-31 18:23] LABS: CHLORIDE,CL 94 mmol/L (98-107); SODIUM,NA 134 mmol/L (136-148)
[2017-10-31] MEDS ORDERED: Calcium Chloride 10% 1 GM/10 ML Syringe IVPUSH ONE (18:47)
[2017-10-31] MEDS ORDERED: 50% Dextrose in Water 50 ML Syringe IVPUSH ONE (18:48)
[2017-10-31] MEDS ORDERED: Insulin Regular, Human 100 Units/ML 10 ML Vial IVPUSH ONE (18:48)
[2017-10-31] MEDS ORDERED: Sodium Bicarbonate 8.4% 50 MEQ/50 ML Syringe IVPUSH ONE (18:51)
[2017-10-31] MEDS ORDERED: amLODIPine 5 MG Tab PO ONE (18:58)
[2017-10-31 19:17] VITALS: BP 199/115
--- NOTE | 2017-11-01 10:48 | CR ---
EXAM DATE: 10/31/17 PATIENT'S AGE: 42 Patient: DUC MORALES Facility: [place], [place] Site . Site : 1975 Study: XRay Chest [id number]/25/[id number] 6:31:14 PM Ordering Physician: Vincent Cat Final Report: Indication: syncope, dizziness Technique: Chest 1 view Comparison: June 07, 2017 Findings/Impression: Stable cardiac size. Stable elevation of the left hemidiaphragm. No pulmonary edema, new focal infiltrate, or pneumothorax. Possible small left pleural effusion, unchanged. Osseous structures intact. Dictated by Armida Parada MD @ Oct 31 2017 6:50PM (Electronic Signature) Report Signed by Proxy. JIMMIE
--- NOTE | 2017-11-01 10:51 | CT ---
EXAM DATE: 10/31/17 PATIENT'S AGE: 42 Patient: DUC MORALES Facility: [place], [place] Site . Site : 1975 Study: CT Head [id number]/25/2018 6:45:29 PM Ordering Physician: Vincent Cat Final Report: INDICATION: Fatigue. TECHNIQUE: Noncontrast axial images through the head. Coronal and sagittal reconstructions. COMPARISON: None. FINDINGS: There is no abnormal intracranial mass effect or midline shift. No intracranial hemorrhage. No abnormal areas of attenuation are seen within the brain. CSF spaces are age-appropriate. No acute bony abnormality. The paranasal sinuses are clear. The mastoids are clear. IMPRESSION: No CT evidence of an acute intracranial abnormality. Dictated by Adarsh Murphy MD @ 10/31/2017 7:01:15 PM Please note that all CT scans at this facility use dose modulation, iterative reconstruction, and/or weight-based dosing when appropriate to reduce radiation dose to as low as reasonably achievable. Dictated by: Adarsh Murphy MD @ 10/31/2017 19:01:28 (Electronic Signature) Report Signed by Proxy. HU[facility] VALLEY HOSPITALKiersten
== END 2017-10-31 19:41 ==
LOC: MW.ED 17:26
DX: I12.0 Hypertensive chronic kidney disease with stage 5 chronic kidney disease or end stage renal disease (principal); N18.6 End stage renal disease; Z99.2 Dependence on renal dialysis; E87.5 Hyperkalemia; Z79.899 Other long term (current) drug therapy
CPT/HCPCS: 36415; 70450; 71045; 80053; 82550; 85025; 93005; 94640; 96374; 96375; 99285; A9270; J2405; J3490; J7060; J1815-GY